=== PATIENT | female | born 1955 | race Caucasian/White ===

== ENCOUNTER 2020-10-03 19:56 | Inpatient (IN) | payer OTHER ==
[2020-10-03 21:03] LABS: BASO % 0.7 % (0-2.0); EOS % 3.5 % (0-4.5); LYMPH % 38.2 % (8-40); MCH 25.6 pg (25.7-33.7); MCHC 31.3 g/dl (32.0-36.0); MEAN CELL VOLUME 81.8 fl (80-96); MEAN PLT VOLUME 9.5 fl (7.5-11.1); MONO % 11.1 % (3.8-10.2); NEUT % 46.5 % (42.8-82.8); PLATELET COUNT 211 K/MM3 (134-434); RBC 4.28 M/mm3 (3.60-5.2); RDW 23.2 % (11.6-15.6); WHITE BLOOD COUNT 7.4 K/mm3 (4.0-10.0)
[2020-10-03 21:23] LABS: POTASSIUM 4.2 mmol/L (3.5-5.1)
[2020-10-03 21:27] LABS: BLOOD UREA NITROGEN 21.7 mg/dL (7-18); CALCIUM 9.1 mg/dL (8.5-10.1)
[2020-10-03 21:28] LABS: ALBUMIN 3.8 g/dl (3.4-5.0)
[2020-10-03 21:31] LABS: CREATININE 0.8 mg/dL (0.55-1.3)
[2020-10-03 21:32] LABS: BILIRUBIN,TOTAL 0.3 mg/dL (0.2-1); TOT PROT 7.9 g/dl (6.4-8.2)
[2020-10-03 21:46] LABS: INR 1.84 (0.83-1.09); PROTHROMBIN TIME (PATIENT) 22.2 SEC (9.7-13.0)
[2020-10-03 21:48] LABS: ACTIVATED PTT 37.1 SECONDS (25.2-36.5)
[2020-10-03 22:08] LABS: ANISOCYTOSIS 3+; MACROCYTOSIS 1+; OVALOCYTE 1+; PLATELET ESTIMATE NORMAL
[2020-10-04] MEDS ORDERED: ACETAMINOPHEN 1000 MG/100 ML VIAL (NON FORMULARY) IVPB ONE (00:01)
[2020-10-04] MEDS ORDERED: ACETAMINOPHEN INJECTION 100 ML IVPB ONE (00:03)
[2020-10-04] MEDS ORDERED: SODIUM CHLORIDE 250 ML IV STA (02:16)
[2020-10-04 05:11] VITALS: BMI 26.5
[2020-10-04] MEDS: ACETAMINOPHEN 325 MG TABLET (FP) PO PRN ×2 (05:25→22:35)
[2020-10-04] MEDS ORDERED: PT OWN MED DRAWER 7, Y5N ONE (09:08)
[2020-10-04] MEDS ORDERED: APIXABAN 5 MG TABLET PO SCH (10:00)
[2020-10-04 10:16] LABS: BASO % 1.1 % (0-2.0); EOS % 3.5 % (0-4.5); HEMATOCRIT 34.3 % (32.4-45.2); HEMOGLOBIN 10.9 GM/dL (10.7-15.3); MCHC 31.8 g/dl (32.0-36.0); MEAN CELL VOLUME 81.6 fl (80-96); MEAN PLT VOLUME 10.3 fl (7.5-11.1); NEUT % 51.4 % (42.8-82.8); PLATELET COUNT 202 K/MM3 (134-434); RDW 22.8 % (11.6-15.6); WHITE BLOOD COUNT 7.8 K/mm3 (4.0-10.0)
[2020-10-04] MEDS ORDERED: ALBUTEROL SO4 HFA INHALER IH PRN (10:35)
[2020-10-04 10:36] LABS: POTASSIUM 4.3 mmol/L (3.5-5.1)
[2020-10-04 10:38] LABS: CALCIUM 9.2 mg/dL (8.5-10.1)
[2020-10-04 10:39] LABS: ALBUMIN 3.7 g/dl (3.4-5.0); BLOOD UREA NITROGEN 19.3 mg/dL (7-18); MAGNESIUM 2.1 mg/dL (1.8-2.4)
[2020-10-04 10:43] LABS: BILIRUBIN,TOTAL 0.5 mg/dL (0.2-1)
[2020-10-04 10:44] LABS: CREATININE 0.8 mg/dL (0.55-1.3); PHOSPHOROUS 4.2 mg/dL (2.5-4.9)
[2020-10-04 10:45] LABS: TOT PROT 7.5 g/dl (6.4-8.2)
[2020-10-04] MEDS: oxyCODONE HCL 5 MG TABLET PO PRN (12:00)
[2020-10-04] MEDS: GABAPENTIN 100 MG CAPSULE PO SCH ×2 (14:26→21:42)
[2020-10-04 14:58] LABS: INR 1.57 (0.83-1.09); PROTHROMBIN TIME (PATIENT) 18.7 SEC (9.7-13.0)
[2020-10-04 15:00] LABS: ACTIVATED PTT 35.6 SECONDS (25.2-36.5)
[2020-10-04] MEDS: CARVEDILOL 3.125 MG TABLET (FP) PO SCH (21:42)
[2020-10-04] MEDS: ATORVASTATIN CA 80 MG TABLET (FP) PO SCH (21:42)
[2020-10-04] MEDS: ENOXAPARIN NA (PORCINE) 80 MG/0.8 ML DISP.SYRIN SQ SCH ×2 (21:42)
[2020-10-04] MEDS ORDERED: SENNOSIDES 8.6MG TABLET (FP) PO ONE (22:24)
[2020-10-04] MEDS ORDERED: POLYETHYLENE GLYCOL 3350 119 GM BTL PO ONE (22:24)
[2020-10-05] MEDS: GABAPENTIN 100 MG CAPSULE PO SCH ×3 (05:18→21:13)
[2020-10-05] MEDS: ACETAMINOPHEN 325 MG TABLET (FP) PO PRN ×2 (05:23→23:54)
[2020-10-05] MEDS: ZINC SULFATE 220 MG CAPSULE (FP) PO SCH (10:35)
[2020-10-05] MEDS: FOLIC ACID 1 MG TABLET (FP) PO SCH (10:35)
[2020-10-05] MEDS: MULTIVITAMINS (DAILY MVI) TABLET (FP) PO SCH (10:36)
[2020-10-05] MEDS: CARVEDILOL 3.125 MG TABLET (FP) PO SCH (10:36)
[2020-10-05] MEDS: THIAMINE HCL 100 MG TABLET (FP) PO SCH (10:36)
[2020-10-05] MEDS: FAMOTIDINE 20 MG TABLET PO SCH (10:36)
[2020-10-05] MEDS: FUROSEMIDE 20 MG TABLET (FP) PO SCH (10:37)
[2020-10-05] MEDS: SENNOSIDES 8.6MG TABLET (FP) PO SCH (10:37)
[2020-10-05] MEDS: LISINOPRIL 5 MG TABLET PO SCH (10:37)
[2020-10-05] MEDS: ENOXAPARIN NA (PORCINE) 80 MG/0.8 ML DISP.SYRIN SQ SCH ×3 (10:45→21:14)
[2020-10-05] MEDS: POLYETHYLENE GLYCOL 3350 119 GM BTL PO SCH (10:46)
[2020-10-05] MEDS: oxyCODONE HCL 5 MG TABLET PO PRN ×2 (13:36→21:14)
[2020-10-05] MEDS: ATORVASTATIN CA 80 MG TABLET (FP) PO SCH (21:13)
[2020-10-05] MEDS: CARVEDILOL 6.25 MG TABLET (FP) PO SCH (21:13)
[2020-10-06] MEDS ORDERED: MELATONIN 5 MG TABLETS PO ONE ×2 (00:56→21:11)
[2020-10-06] MEDS: GABAPENTIN 100 MG CAPSULE PO SCH ×3 (06:09→21:49)
[2020-10-06] MEDS ORDERED: LIDOCAINE HCL 1%, 10 MG/ML (20ML VIAL) ONE (08:18)
[2020-10-06] MEDS ORDERED: HEPARIN NA (PORCINE) 5,000 UNITS/ML 1ML VIAL ONE ×2 (08:18→08:57)
[2020-10-06] MEDS ORDERED: ONDANSETRON 4 MG/2 ML VIAL IVPUSH PRN ×2 (08:28→10:22)
[2020-10-06] MEDS ORDERED: LACTATED RINGERS SOLUTION 1,000 ML IV SCH (08:30)
[2020-10-06] MEDS ORDERED: LIDOCAINE HCL/PF 2% SDV 5ML VIAL ONE (08:57)
[2020-10-06] MEDS ORDERED: PROPOFOL 20 ML ONE ×2 (08:57→08:58)
[2020-10-06] MEDS ORDERED: MIDAZOLAM HCL 2 MG/2 ML SINGLE DOSE VIAL ONE (08:58)
[2020-10-06] MEDS ORDERED: ceFAZolin SODIUM 1 GM VIAL ONE (08:58)
[2020-10-06] MEDS ORDERED: LIDOCAINE HCL 1%, 10 MG/ML (20ML VIAL) INF ONE ×2 (09:06)
[2020-10-06] MEDS ORDERED: IOVERSOL 320 MG/ML ML IV ONE (09:40)
[2020-10-06] MEDS: THIAMINE HCL 100 MG TABLET (FP) PO SCH (10:00)
[2020-10-06] MEDS: FOLIC ACID 1 MG TABLET (FP) PO SCH (10:00)
[2020-10-06] MEDS: LISINOPRIL 5 MG TABLET PO SCH (10:00)
[2020-10-06] MEDS: ZINC SULFATE 220 MG CAPSULE (FP) PO SCH (10:00)
[2020-10-06] MEDS: POLYETHYLENE GLYCOL 3350 119 GM BTL PO SCH (10:00)
[2020-10-06] MEDS: MULTIVITAMINS (DAILY MVI) TABLET (FP) PO SCH (10:00)
[2020-10-06] MEDS: CARVEDILOL 6.25 MG TABLET (FP) PO SCH ×2 (10:00→21:48)
[2020-10-06] MEDS: FUROSEMIDE 20 MG TABLET (FP) PO SCH (10:00)
[2020-10-06] MEDS: SENNOSIDES 8.6MG TABLET (FP) PO SCH (10:00)
[2020-10-06] MEDS: FAMOTIDINE 20 MG TABLET PO SCH (10:00)
[2020-10-06] MEDS ORDERED: ALBUTEROL SO4 HFA INHALER IH PRN (10:22)
[2020-10-06] MEDS: LACTATED RINGERS SOLUTION 1,000 ML IV SCH (11:10)
[2020-10-06] MEDS: oxyCODONE HCL 5 MG TABLET PO PRN ×2 (12:58→20:30)
[2020-10-06] MEDS: APIXABAN 5 MG TABLET PO SCH ×2 (16:42→21:48)
[2020-10-06] MEDS: ATORVASTATIN CA 80 MG TABLET (FP) PO SCH (21:48)
[2020-10-07] MEDS: oxyCODONE HCL 5 MG TABLET PO PRN ×3 (02:41→20:32)
[2020-10-07] MEDS: GABAPENTIN 100 MG CAPSULE PO SCH ×3 (05:06→21:12)
[2020-10-07] MEDS: ACETAMINOPHEN 325 MG TABLET (FP) PO PRN (06:57)
[2020-10-07] MEDS: SENNOSIDES 8.6MG TABLET (FP) PO SCH (09:29)
[2020-10-07] MEDS: APIXABAN 5 MG TABLET PO SCH ×2 (09:29→21:11)
[2020-10-07] MEDS: CARVEDILOL 6.25 MG TABLET (FP) PO SCH ×2 (09:29→21:11)
[2020-10-07] MEDS: FOLIC ACID 1 MG TABLET (FP) PO SCH (09:29)
[2020-10-07] MEDS: FUROSEMIDE 20 MG TABLET (FP) PO SCH (09:30)
[2020-10-07] MEDS: THIAMINE HCL 100 MG TABLET (FP) PO SCH (09:30)
[2020-10-07] MEDS: MULTIVITAMINS (DAILY MVI) TABLET (FP) PO SCH (09:30)
[2020-10-07] MEDS: LISINOPRIL 5 MG TABLET PO SCH (09:30)
[2020-10-07] MEDS: POLYETHYLENE GLYCOL 3350 119 GM BTL PO SCH (09:31)
[2020-10-07] MEDS: FAMOTIDINE 20 MG TABLET PO SCH (09:31)
[2020-10-07] MEDS ORDERED: ZINC SULFATE 220 MG CAPSULE (FP) PO SCH (10:00)
[2020-10-07] MEDS: LACTATED RINGERS SOLUTION 1,000 ML IV SCH (13:40)
[2020-10-07] MEDS: ATORVASTATIN CA 80 MG TABLET (FP) PO SCH (21:12)
[2020-10-08] MEDS: ACETAMINOPHEN 325 MG TABLET (FP) PO PRN ×2 (01:30→19:55)
[2020-10-08] MEDS: oxyCODONE HCL 5 MG TABLET PO PRN ×2 (02:23→09:58)
[2020-10-08] MEDS: GABAPENTIN 100 MG CAPSULE PO SCH ×2 (05:13→14:00)
[2020-10-08] MEDS ORDERED: PT OWN MED DRAWER 7, Y5N ONE (05:19)
[2020-10-08] MEDS: SENNOSIDES 8.6MG TABLET (FP) PO SCH (09:56)
[2020-10-08] MEDS: APIXABAN 5 MG TABLET PO SCH (09:56)
[2020-10-08] MEDS: CARVEDILOL 6.25 MG TABLET (FP) PO SCH (09:57)
[2020-10-08] MEDS: FOLIC ACID 1 MG TABLET (FP) PO SCH (09:57)
[2020-10-08] MEDS: THIAMINE HCL 100 MG TABLET (FP) PO SCH (09:57)
[2020-10-08] MEDS: FUROSEMIDE 20 MG TABLET (FP) PO SCH (09:57)
[2020-10-08] MEDS: MULTIVITAMINS (DAILY MVI) TABLET (FP) PO SCH (09:57)
[2020-10-08] MEDS: LISINOPRIL 5 MG TABLET PO SCH (09:57)
[2020-10-08] MEDS: FAMOTIDINE 20 MG TABLET PO SCH (09:58)
[2020-10-08] MEDS: POLYETHYLENE GLYCOL 3350 119 GM BTL PO SCH (10:03)
[2020-10-08 18:57] VITALS: BP 131/60; PULSE 86; TEMP 97.6
== END 2020-10-08 20:00 | DRG 181 ==
LOC: JER 19:56 → JERBED 22:57 → J5S 10-04 05:20
PROVIDERS: ADMIT Hospitalist; ATTEND Internal Medicine
PROC: B40FYZZ Plain Radiography of Right Lower Extremity Arteries using Other Contrast (ICD-10-PCS; 2020-10-06)
PROC: B40DYZZ Plain Radiography of Aorta and Bilateral Lower Extremity Arteries using Other Contrast (ICD-10-PCS; 2020-10-06)
PROC: 047K3D1 Dilation of Right Femoral Artery with Intraluminal Device, using Drug-Coated Balloon, Percutaneous Approach (ICD-10-PCS; principal; 2020-10-06 09:00)
DX: I73.9 Peripheral vascular disease, unspecified (principal); I11.0 Hypertensive heart disease with heart failure; I50.22 Chronic systolic (congestive) heart failure; I36.1 Nonrheumatic tricuspid (valve) insufficiency; J44.9 Chronic obstructive pulmonary disease, unspecified; K21.9 Gastro-esophageal reflux disease without esophagitis; I25.10 Atherosclerotic heart disease of native coronary artery without angina pectoris; Z79.01 Long term (current) use of anticoagulants; D64.9 Anemia, unspecified; E78.5 Hyperlipidemia, unspecified; I44.7 Left bundle-branch block, unspecified; R94.31 Abnormal electrocardiogram [ECG] [EKG]; I34.0 Nonrheumatic mitral (valve) insufficiency; I35.0 Nonrheumatic aortic (valve) stenosis; I48.19 Other persistent atrial fibrillation
CPT/HCPCS: 36415; 71045-TC-FY; 75635-TC; 76000-TC-FY; 80053; 83605; 83735; 84100; 85025; 85610; 85730; 86850; 86900; 86901; 93005; 93010; 93926-TC; 94760; 99285-25; C9803; J0131; J1644; Q9967; U0003

== ENCOUNTER 2021-04-21 14:54 | Inpatient (IN) | payer OTHER ==
[2021-04-21] MEDS ORDERED: HEPARIN NA (PORCINE) 5,000 UNITS/ML 1ML VIAL IVPUSH PRN ×2 (15:28)
[2021-04-21] MEDS ORDERED: SODIUM CHLORIDE 0.9% 500 ML INFUS.BAG IV ONE (15:30)
[2021-04-21] MEDS ORDERED: ACETAMINOPHEN 1000 MG/100 ML VIAL (NON FORMULARY) IVPB ONE (15:36)
[2021-04-21 15:45] LABS: BASO % 1.2 % (0-2.0); EOS % 2.5 % (0-4.5); HEMATOCRIT 35.5 % (32.4-45.2); HEMOGLOBIN 11.3 GM/dL (10.7-15.3); LYMPH % 31.1 % (8-40); MCH 26.5 pg (25.7-33.7); MCHC 31.9 g/dl (32.0-36.0); MEAN CELL VOLUME 83.1 fl (80-96); MONO % 10.4 % (3.8-10.2); NEUT % 54.8 % (42.8-82.8); PLATELET COUNT 209 10^3/uL (134-434); RBC 4.28 M/mm3 (3.60-5.2); RDW 19.3 % (11.6-15.6); WHITE BLOOD COUNT 9.5 K/mm3 (4.0-10.0)
[2021-04-21 15:55] LABS: INR 1.67 (0.83-1.09); PROTHROMBIN TIME (PATIENT) 19.9 SEC (9.7-13.0)
[2021-04-21] MEDS ORDERED: HEPARIN INFUSION - 25,000 UNITS/500 ML INFUS.BAG IVPB ONE (15:55)
[2021-04-21] MEDS ORDERED: ACETAMINOPHEN INJECTION 100 ML IVPB ONE (15:55)
[2021-04-21 15:57] LABS: ACTIVATED PTT 35.3 SECONDS (25.2-36.5)
[2021-04-21 16:11] LABS: CHLORIDE 107 mmol/L (98-107); SODIUM 142 mmol/L (136-145)
[2021-04-21 16:13] LABS: CALCIUM 9.3 mg/dL (8.5-10.1)
[2021-04-21 16:14] LABS: ALBUMIN 3.7 g/dl (3.4-5.0); ANION GAP 7 MMOL/L (8-16); BLOOD UREA NITROGEN 27.9 mg/dL (7-18); CO2 28 mmol/L (21-32); GLUCOSE,RANDOM 70 mg/dL (74-106)
[2021-04-21 16:17] LABS: CREATININE 1.1 mg/dL (0.55-1.3); SGOT/AST 21 U/L (15-37); SGPT/ALT 28 U/L (13-61)
[2021-04-21 16:19] LABS: BILIRUBIN,TOTAL 0.4 mg/dL (0.2-1); TOT PROT 7.8 g/dl (6.4-8.2)
[2021-04-21 16:20] LABS: ALK PHOS 66 U/L (45-117)
[2021-04-21] MEDS: HEPARIN - 25,000 UNIT in SODIUM CHLORIDE 495 ML IV SCH (17:24)
[2021-04-21] MEDS: CARVEDILOL 6.25 MG TABLET (FP) PO SCH (21:15)
[2021-04-21] MEDS ORDERED: ATORVASTATIN CA 80 MG TABLET (FP) ONE (21:29)
[2021-04-21] MEDS ORDERED: GABAPENTIN 100 MG CAPSULE ONE (21:29)
[2021-04-21] MEDS: GABAPENTIN 100 MG CAPSULE PO SCH (21:31)
[2021-04-21] MEDS: ATORVASTATIN CA 80 MG TABLET (FP) PO SCH (21:31)
[2021-04-21] MEDS ORDERED: MORPHINE SULFATE 2 MG/ML VIAL ONE (21:48)
[2021-04-21] MEDS: MORPHINE SULFATE 2 MG/ML VIAL IVPUSH PRN (21:52)
[2021-04-21 23:44] LABS: INR 1.49 (0.83-1.09); PROTHROMBIN TIME (PATIENT) 17.8 SEC (9.7-13.0)
[2021-04-21 23:47] LABS: ACTIVATED PTT 59.3 SECONDS (25.2-36.5)
[2021-04-22] MEDS: GABAPENTIN 100 MG CAPSULE PO SCH ×3 (06:53→21:41)
[2021-04-22] MEDS: MORPHINE SULFATE 2 MG/ML VIAL IVPUSH PRN ×3 (06:53→21:37)
[2021-04-22 06:58] LABS: BASO % 0.9 % (0-2.0); EOS % 4.5 % (0-4.5); HEMATOCRIT 33.3 % (32.4-45.2); HEMOGLOBIN 10.8 GM/dL (10.7-15.3); LYMPH % 38.8 % (8-40); MCH 27.2 pg (25.7-33.7); MCHC 32.5 g/dl (32.0-36.0); MEAN CELL VOLUME 83.6 fl (80-96); MEAN PLT VOLUME 9.7 fl (7.5-11.1); MONO % 9.7 % (3.8-10.2); NEUT % 46.1 % (42.8-82.8); PLATELET COUNT 195 10^3/uL (134-434); RBC 3.98 M/mm3 (3.60-5.2); RDW 19.3 % (11.6-15.6); WHITE BLOOD COUNT 8.3 K/mm3 (4.0-10.0)
[2021-04-22] MEDS: CARVEDILOL 6.25 MG TABLET (FP) PO SCH ×2 (10:07→21:42)
[2021-04-22] MEDS: FUROSEMIDE 20 MG TABLET (FP) PO SCH (10:07)
[2021-04-22] MEDS: LISINOPRIL 5 MG TABLET PO SCH (10:07)
[2021-04-22 11:37] LABS: ALBUMIN 3.6 g/dl (3.4-5.0); BLOOD UREA NITROGEN 27.5 mg/dL (7-18); CALCIUM 9.1 mg/dL (8.5-10.1); MAGNESIUM 2.2 mg/dL (1.8-2.4)
[2021-04-22 11:40] LABS: PHOSPHOROUS 4.4 mg/dL (2.5-4.9)
[2021-04-22 11:43] LABS: BILIRUBIN,TOTAL 0.4 mg/dL (0.2-1); TOT PROT 7.2 g/dl (6.4-8.2)
[2021-04-22] MEDS: HEPARIN - 25,000 UNIT in SODIUM CHLORIDE 495 ML IV SCH (17:49)
[2021-04-22] MEDS ORDERED: ACETAMINOPHEN 1000 MG/100 ML VIAL (NON FORMULARY) IVPB ONE (19:45)
[2021-04-22] MEDS: ATORVASTATIN CA 80 MG TABLET (FP) PO SCH (21:41)
[2021-04-22] MEDS ORDERED: PT OWN MED DRAWER 7, Y5N ONE (22:33)
[2021-04-22] MEDS ORDERED: MORPHINE SULFATE 2 MG/ML VIAL IVPUSH PRN (23:44)
[2021-04-23] MEDS: HEPARIN - 25,000 UNIT in SODIUM CHLORIDE 495 ML IV SCH ×2 (00:11→16:21)
[2021-04-23] MEDS: GABAPENTIN 100 MG CAPSULE PO SCH ×3 (05:16→23:30)
[2021-04-23 06:51] LABS: HEMOGLOBIN 10.9 GM/dL (10.7-15.3); MCH 26.9 pg (25.7-33.7); MCHC 31.9 g/dl (32.0-36.0); MEAN CELL VOLUME 84.2 fl (80-96); MEAN PLT VOLUME 9.5 fl (7.5-11.1); PLATELET COUNT 196 10^3/uL (134-434); RBC 4.04 M/mm3 (3.60-5.2); RDW 19.7 % (11.6-15.6); WHITE BLOOD COUNT 8.3 K/mm3 (4.0-10.0)
[2021-04-23] MEDS: LISINOPRIL 5 MG TABLET PO SCH (10:12)
[2021-04-23] MEDS: FUROSEMIDE 20 MG TABLET (FP) PO SCH (10:12)
[2021-04-23] MEDS: CARVEDILOL 6.25 MG TABLET (FP) PO SCH ×2 (10:13→23:30)
[2021-04-23] MEDS ORDERED: HEPARIN NA (PORCINE) 5,000 UNITS/ML 1ML VIAL ONE ×3 (14:09→19:42)
[2021-04-23] MEDS ORDERED: LIDOCAINE HCL 1%, 10 MG/ML (20ML VIAL) ONE (14:09)
[2021-04-23] MEDS ORDERED: ONDANSETRON 4 MG/2 ML VIAL IVPUSH PRN ×2 (18:48→20:49)
[2021-04-23] MEDS ORDERED: MIDAZOLAM HCL 2 MG/2 ML SINGLE DOSE VIAL ONE (19:15)
[2021-04-23] MEDS ORDERED: PROPOFOL 20 ML ONE ×3 (19:15→19:44)
[2021-04-23] MEDS ORDERED: ceFAZolin SODIUM 1 GM VIAL IVPB ONE (19:15)
[2021-04-23] MEDS ORDERED: HEPARIN NA (PORCINE) 5,000 UNITS/ML 1ML VIAL IVPUSH PRN ×3 (20:23→20:24)
[2021-04-23] MEDS ORDERED: HEPARIN INFUSION - 25,000 UNITS/500 ML INFUS.BAG IVPB ONE (20:28)
[2021-04-23] MEDS: HEPARIN SOD,PORK IN 0.45% NACL 25,000 UNITS/500 ML INFUS.BAG IVPB SCH (20:30)
[2021-04-23] MEDS: MORPHINE SULFATE 2 MG/ML VIAL IVPUSH PRN (22:35)
[2021-04-23] MEDS: ATORVASTATIN CA 80 MG TABLET (FP) PO SCH (23:30)
[2021-04-24] MEDS: MORPHINE SULFATE 2 MG/ML VIAL IVPUSH PRN ×3 (00:26→05:54)
[2021-04-24] MEDS: GABAPENTIN 100 MG CAPSULE PO SCH ×3 (05:44→21:14)
[2021-04-24 06:57] LABS: HEMOGLOBIN 10.6 GM/dL (10.7-15.3); MCHC 32.1 g/dl (32.0-36.0); MEAN CELL VOLUME 84.1 fl (80-96); MEAN PLT VOLUME 9.4 fl (7.5-11.1); PLATELET COUNT 171 10^3/uL (134-434); RBC 3.93 M/mm3 (3.60-5.2); RDW 19.3 % (11.6-15.6); WHITE BLOOD COUNT 9.5 K/mm3 (4.0-10.0)
[2021-04-24] MEDS: FUROSEMIDE 20 MG TABLET (FP) PO SCH (10:00)
[2021-04-24] MEDS: LISINOPRIL 5 MG TABLET PO SCH (10:00)
[2021-04-24] MEDS: CARVEDILOL 6.25 MG TABLET (FP) PO SCH ×2 (10:38→21:14)
[2021-04-24] MEDS ORDERED: PT OWN MED DRAWER 7, Y5N ONE (11:18)
[2021-04-24] MEDS ORDERED: APIXABAN 5 MG TABLET PO SCH (12:00)
[2021-04-24] MEDS ORDERED: SODIUM CHLORIDE 1,000 ML IV SCH (19:00)
[2021-04-24 20:30] LABS: ALBUMIN 3.4 g/dl (3.4-5.0); BLOOD UREA NITROGEN 22.1 mg/dL (7-18); CALCIUM 8.7 mg/dL (8.5-10.1); MAGNESIUM 2.1 mg/dL (1.8-2.4)
[2021-04-24 20:34] LABS: CREATININE 0.7 mg/dL (0.55-1.3); PHOSPHOROUS 3.3 mg/dL (2.5-4.9)
[2021-04-24 20:35] LABS: BILIRUBIN,TOTAL 0.4 mg/dL (0.2-1); TOT PROT 7.4 g/dl (6.4-8.2)
[2021-04-24] MEDS: ATORVASTATIN CA 80 MG TABLET (FP) PO SCH (21:14)
[2021-04-24] MEDS: APIXABAN 5 MG TABLET PO SCH (21:14)
[2021-04-24] MEDS: HEPARIN SOD,PORK IN 0.45% NACL 25,000 UNITS/500 ML INFUS.BAG IVPB SCH (22:08)
[2021-04-25] MEDS: GABAPENTIN 100 MG CAPSULE PO SCH ×3 (06:35→21:54)
[2021-04-25] MEDS: FUROSEMIDE 20 MG TABLET (FP) PO SCH (10:16)
[2021-04-25] MEDS: CARVEDILOL 6.25 MG TABLET (FP) PO SCH ×2 (10:16→21:54)
[2021-04-25] MEDS: APIXABAN 5 MG TABLET PO SCH ×2 (10:16→21:55)
[2021-04-25] MEDS: LISINOPRIL 5 MG TABLET PO SCH (10:16)
[2021-04-25] MEDS: ATORVASTATIN CA 80 MG TABLET (FP) PO SCH (21:54)
[2021-04-26] MEDS: GABAPENTIN 100 MG CAPSULE PO SCH ×3 (07:34→22:19)
[2021-04-26] MEDS: CARVEDILOL 6.25 MG TABLET (FP) PO SCH ×2 (10:40→22:19)
[2021-04-26] MEDS: APIXABAN 5 MG TABLET PO SCH ×2 (10:40→22:19)
[2021-04-26] MEDS: FUROSEMIDE 20 MG TABLET (FP) PO SCH (10:40)
[2021-04-26] MEDS: LISINOPRIL 5 MG TABLET PO SCH (10:40)
[2021-04-26] MEDS: ATORVASTATIN CA 80 MG TABLET (FP) PO SCH (22:19)
[2021-04-27] MEDS: GABAPENTIN 100 MG CAPSULE PO SCH ×3 (06:29→21:02)
[2021-04-27] MEDS: LISINOPRIL 5 MG TABLET PO SCH (10:04)
[2021-04-27] MEDS: CARVEDILOL 6.25 MG TABLET (FP) PO SCH ×2 (10:04→21:02)
[2021-04-27] MEDS: FUROSEMIDE 20 MG TABLET (FP) PO SCH (10:04)
[2021-04-27] MEDS: APIXABAN 5 MG TABLET PO SCH ×2 (10:05→21:02)
[2021-04-27] MEDS ORDERED: ONDANSETRON 4 MG/2 ML VIAL IVPUSH PRN (19:26)
[2021-04-27] MEDS ORDERED: MORPHINE SULFATE 2 MG/ML VIAL IVPUSH PRN (19:26)
[2021-04-27] MEDS: ATORVASTATIN CA 80 MG TABLET (FP) PO SCH (21:02)
[2021-04-28] MEDS: GABAPENTIN 100 MG CAPSULE PO SCH ×3 (06:04→21:42)
[2021-04-28 08:38] LABS: BASO % 0.7 % (0-2.0); EOS % 2.9 % (0-4.5); HEMATOCRIT 34.4 % (32.4-45.2); HEMOGLOBIN 11.1 GM/dL (10.7-15.3); LYMPH % 22.2 % (8-40); MCH 27.2 pg (25.7-33.7); MCHC 32.3 g/dl (32.0-36.0); MEAN CELL VOLUME 84.4 fl (80-96); MEAN PLT VOLUME 9.6 fl (7.5-11.1); MONO % 10.9 % (3.8-10.2); NEUT % 63.3 % (42.8-82.8); PLATELET COUNT 211 10^3/uL (134-434); RBC 4.08 M/mm3 (3.60-5.2); RDW 20.2 % (11.6-15.6); WHITE BLOOD COUNT 7.4 K/mm3 (4.0-10.0)
[2021-04-28 09:12] LABS: BLOOD UREA NITROGEN 24.8 mg/dL (7-18); CALCIUM 9.1 mg/dL (8.5-10.1); MAGNESIUM 2.2 mg/dL (1.8-2.4)
[2021-04-28 09:15] LABS: CREATININE 0.6 mg/dL (0.55-1.3)
[2021-04-28] MEDS: APIXABAN 5 MG TABLET PO SCH ×2 (10:24→21:21)
[2021-04-28] MEDS: LISINOPRIL 5 MG TABLET PO SCH (10:25)
[2021-04-28] MEDS: FUROSEMIDE 20 MG TABLET (FP) PO SCH (10:25)
[2021-04-28] MEDS: CARVEDILOL 6.25 MG TABLET (FP) PO SCH ×2 (10:25→21:21)
[2021-04-28] MEDS: PANTOPRAZOLE 40 MG TABLET PO SCH (17:53)
[2021-04-28] MEDS: ATORVASTATIN CA 80 MG TABLET (FP) PO SCH (21:20)
[2021-04-29] MEDS ORDERED: ACETAMINOPHEN 325 MG TABLET (FP) PO ONE (00:59)
[2021-04-29] MEDS: GABAPENTIN 100 MG CAPSULE PO SCH ×3 (06:00→21:15)
[2021-04-29] MEDS: APIXABAN 5 MG TABLET PO SCH (10:21)
[2021-04-29] MEDS: FUROSEMIDE 20 MG TABLET (FP) PO SCH (10:21)
[2021-04-29] MEDS: PANTOPRAZOLE 40 MG TABLET PO SCH (10:21)
[2021-04-29] MEDS: LISINOPRIL 5 MG TABLET PO SCH (10:21)
[2021-04-29] MEDS: CARVEDILOL 6.25 MG TABLET (FP) PO SCH ×2 (10:21→21:16)
[2021-04-29] MEDS ORDERED: SODIUM CHLORIDE 250 ML IV STA (16:09)
[2021-04-29] MEDS: ATORVASTATIN CA 80 MG TABLET (FP) PO SCH (21:16)
[2021-04-30] MEDS: GABAPENTIN 100 MG CAPSULE PO SCH ×3 (05:20→22:30)
[2021-04-30 09:07] LABS: BASO % 0.8 % (0-2.0); EOS % 2.4 % (0-4.5); HEMATOCRIT 33.3 % (32.4-45.2); HEMOGLOBIN 10.9 GM/dL (10.7-15.3); MCH 27.3 pg (25.7-33.7); MCHC 32.8 g/dl (32.0-36.0); MEAN CELL VOLUME 83.4 fl (80-96); MEAN PLT VOLUME 9.5 fl (7.5-11.1); MONO % 8.2 % (3.8-10.2); NEUT % 66.6 % (42.8-82.8); PLATELET COUNT 229 10^3/uL (134-434); RBC 3.99 M/mm3 (3.60-5.2); RDW 19.3 % (11.6-15.6); WHITE BLOOD COUNT 8.2 K/mm3 (4.0-10.0)
[2021-04-30 09:30] LABS: CALCIUM 8.9 mg/dL (8.5-10.1)
[2021-04-30 09:31] LABS: BLOOD UREA NITROGEN 21.3 mg/dL (7-18)
[2021-04-30 09:34] LABS: CREATININE 0.7 mg/dL (0.55-1.3)
[2021-04-30] MEDS: PANTOPRAZOLE 40 MG TABLET PO SCH (09:55)
[2021-04-30] MEDS: CARVEDILOL 6.25 MG TABLET (FP) PO SCH ×2 (09:55→22:30)
[2021-04-30] MEDS: LISINOPRIL 5 MG TABLET PO SCH (09:55)
[2021-04-30] MEDS: FUROSEMIDE 20 MG TABLET (FP) PO SCH (09:55)
[2021-04-30] MEDS ORDERED: MULTIVITAMINS THER W-MINERALS COMBO TABLET (FP) PO SCH (10:00)
[2021-04-30] MEDS ORDERED: HEPARIN NA (PORCINE) 5,000 UNITS/ML 1ML VIAL ONE ×2 (15:10→17:20)
[2021-04-30] MEDS ORDERED: LIDOCAINE HCL 1%, 10 MG/ML (20ML VIAL) ONE (15:10)
[2021-04-30] MEDS ORDERED: PROPOFOL 20 ML ONE ×5 (15:41→17:34)
[2021-04-30] MEDS ORDERED: ceFAZolin SODIUM 1 GM VIAL ONE (15:48)
[2021-04-30] MEDS ORDERED: ceFAZolin SODIUM 1 GM VIAL IVPB ONE (15:49)
[2021-04-30] MEDS ORDERED: LIDOCAINE HCL 1%, 10 MG/ML (20ML VIAL) INF ONE (17:06)
[2021-04-30] MEDS ORDERED: PROMETHAZINE HCL 25 MG/1 ML VIAL IVPUSH PRN ×2 (18:05→18:28)
[2021-04-30] MEDS ORDERED: ONDANSETRON 4 MG/2 ML VIAL IVPUSH PRN ×2 (18:05→18:28)
[2021-04-30] MEDS ORDERED: LACTATED RINGERS SOLUTION 1,000 ML IV SCH ×2 (18:15→18:28)
[2021-04-30] MEDS ORDERED: APIXABAN 5 MG TABLET PO SCH (18:20)
[2021-04-30] MEDS: ATORVASTATIN CA 80 MG TABLET (FP) PO SCH (22:30)
[2021-05-01] MEDS: ACETAMINOPHEN 325 MG TABLET (FP) PO PRN ×2 (05:50→13:42)
[2021-05-01] MEDS: GABAPENTIN 100 MG CAPSULE PO SCH ×3 (05:53→21:15)
[2021-05-01] MEDS: PANTOPRAZOLE 40 MG TABLET PO SCH (11:52)
[2021-05-01] MEDS: MULTIVITAMINS THER W-MINERALS COMBO TABLET (FP) PO SCH (11:52)
[2021-05-01] MEDS: FUROSEMIDE 20 MG TABLET (FP) PO SCH (11:52)
[2021-05-01] MEDS: CARVEDILOL 6.25 MG TABLET (FP) PO SCH ×2 (11:53→21:15)
[2021-05-01] MEDS: APIXABAN 5 MG TABLET PO SCH ×2 (11:53→21:15)
[2021-05-01] MEDS: LISINOPRIL 5 MG TABLET PO SCH (11:53)
[2021-05-01 15:16] VITALS: BMI 29.9
[2021-05-01] MEDS: ATORVASTATIN CA 80 MG TABLET (FP) PO SCH (21:15)
[2021-05-02] MEDS: GABAPENTIN 100 MG CAPSULE PO SCH ×3 (05:25→21:02)
[2021-05-02] MEDS: LISINOPRIL 5 MG TABLET PO SCH (10:02)
[2021-05-02] MEDS: ACETAMINOPHEN 325 MG TABLET (FP) PO PRN ×3 (10:02→21:03)
[2021-05-02] MEDS: CARVEDILOL 6.25 MG TABLET (FP) PO SCH ×2 (10:02→21:01)
[2021-05-02] MEDS: MULTIVITAMINS THER W-MINERALS COMBO TABLET (FP) PO SCH (10:02)
[2021-05-02] MEDS: APIXABAN 5 MG TABLET PO SCH ×2 (10:02→21:02)
[2021-05-02] MEDS: PANTOPRAZOLE 40 MG TABLET PO SCH (10:02)
[2021-05-02] MEDS: FUROSEMIDE 20 MG TABLET (FP) PO SCH (10:02)
[2021-05-02] MEDS: oxyCODONE HCL 5 MG TABLET PO PRN ×2 (13:35→21:02)
[2021-05-02] MEDS: ATORVASTATIN CA 80 MG TABLET (FP) PO SCH (21:01)
[2021-05-03] MEDS: GABAPENTIN 100 MG CAPSULE PO SCH ×3 (05:29→21:23)
[2021-05-03] MEDS: oxyCODONE HCL 5 MG TABLET PO PRN ×2 (10:50→21:24)
[2021-05-03] MEDS: MULTIVITAMINS THER W-MINERALS COMBO TABLET (FP) PO SCH (10:52)
[2021-05-03] MEDS: CARVEDILOL 6.25 MG TABLET (FP) PO SCH ×2 (10:52→21:23)
[2021-05-03] MEDS: APIXABAN 5 MG TABLET PO SCH ×2 (10:52→21:24)
[2021-05-03] MEDS: LISINOPRIL 5 MG TABLET PO SCH (10:52)
[2021-05-03] MEDS: PANTOPRAZOLE 40 MG TABLET PO SCH (10:52)
[2021-05-03] MEDS: FUROSEMIDE 20 MG TABLET (FP) PO SCH (10:52)
[2021-05-03] MEDS: ACETAMINOPHEN 325 MG TABLET (FP) PO PRN ×2 (10:53→21:24)
[2021-05-03] MEDS: ATORVASTATIN CA 80 MG TABLET (FP) PO SCH (21:23)
[2021-05-04] MEDS: GABAPENTIN 100 MG CAPSULE PO SCH ×3 (05:25→21:22)
[2021-05-04] MEDS: LISINOPRIL 5 MG TABLET PO SCH (10:12)
[2021-05-04] MEDS: FUROSEMIDE 20 MG TABLET (FP) PO SCH (10:12)
[2021-05-04] MEDS: PANTOPRAZOLE 40 MG TABLET PO SCH (10:12)
[2021-05-04] MEDS: MULTIVITAMINS THER W-MINERALS COMBO TABLET (FP) PO SCH (10:12)
[2021-05-04] MEDS: APIXABAN 5 MG TABLET PO SCH ×2 (10:12→21:22)
[2021-05-04] MEDS: CARVEDILOL 6.25 MG TABLET (FP) PO SCH ×2 (10:12→21:22)
[2021-05-04] MEDS: oxyCODONE HCL 5 MG TABLET PO PRN ×2 (10:13→21:28)
[2021-05-04] MEDS: ACETAMINOPHEN 325 MG TABLET (FP) PO PRN (10:13)
[2021-05-04] MEDS: ATORVASTATIN CA 80 MG TABLET (FP) PO SCH (21:22)
[2021-05-04] MEDS: MORPHINE SULFATE 2 MG/ML VIAL IVPUSH PRN (21:23)
[2021-05-05] MEDS: MORPHINE SULFATE 2 MG/ML VIAL IVPUSH PRN (05:31)
[2021-05-05] MEDS: GABAPENTIN 100 MG CAPSULE PO SCH ×3 (05:32→21:25)
[2021-05-05 08:56] LABS: BASO % 0.8 % (0-2.0); EOS % 2.2 % (0-4.5); HEMATOCRIT 30.3 % (32.4-45.2); HEMOGLOBIN 9.9 GM/dL (10.7-15.3); INR 1.76 (0.83-1.09); LYMPH % 22.4 % (8-40); MCH 27.1 pg (25.7-33.7); MCHC 32.5 g/dl (32.0-36.0); MEAN CELL VOLUME 83.3 fl (80-96); MEAN PLT VOLUME 9.4 fl (7.5-11.1); MONO % 10.7 % (3.8-10.2); NEUT % 63.9 % (42.8-82.8); PLATELET COUNT 268 10^3/uL (134-434); RBC 3.64 M/mm3 (3.60-5.2); RDW 19.8 % (11.6-15.6); WHITE BLOOD COUNT 9.8 K/mm3 (4.0-10.0)
[2021-05-05 08:58] LABS: ACTIVATED PTT 31.1 SECONDS (25.2-36.5)
[2021-05-05 09:12] LABS: BLOOD UREA NITROGEN 14.6 mg/dL (7-18)
[2021-05-05 09:15] LABS: CREATININE 0.6 mg/dL (0.55-1.3)
[2021-05-05 09:17] LABS: BILIRUBIN,TOTAL 0.5 mg/dL (0.2-1); TOT PROT 7.1 g/dl (6.4-8.2)
[2021-05-05 09:36] LABS: ALBUMIN 2.6 g/dl (3.4-5.0)
[2021-05-05] MEDS: PANTOPRAZOLE 40 MG TABLET PO SCH (11:19)
[2021-05-05] MEDS: FUROSEMIDE 20 MG TABLET (FP) PO SCH (11:19)
[2021-05-05] MEDS: MULTIVITAMINS THER W-MINERALS COMBO TABLET (FP) PO SCH (11:20)
[2021-05-05] MEDS: CARVEDILOL 6.25 MG TABLET (FP) PO SCH ×2 (11:21→21:25)
[2021-05-05] MEDS: LISINOPRIL 5 MG TABLET PO SCH (11:21)
[2021-05-05] MEDS ORDERED: PT OWN MED DRAWER 7, Y5N ONE (12:37)
[2021-05-05] MEDS: oxyCODONE HCL 5 MG TABLET PO PRN (12:50)
[2021-05-05] MEDS: ACETAMINOPHEN 325 MG TABLET (FP) PO PRN (12:52)
[2021-05-05] MEDS: APIXABAN 5 MG TABLET PO SCH ×2 (12:53→23:48)
[2021-05-05] MEDS: ATORVASTATIN CA 80 MG TABLET (FP) PO SCH (21:25)
[2021-05-06] MEDS: GABAPENTIN 100 MG CAPSULE PO SCH ×3 (05:58→22:03)
[2021-05-06] MEDS: PANTOPRAZOLE 40 MG TABLET PO SCH (10:00)
[2021-05-06] MEDS: FUROSEMIDE 20 MG TABLET (FP) PO SCH (10:00)
[2021-05-06] MEDS: MULTIVITAMINS THER W-MINERALS COMBO TABLET (FP) PO SCH (10:00)
[2021-05-06] MEDS: LISINOPRIL 5 MG TABLET PO SCH (10:00)
[2021-05-06] MEDS: CARVEDILOL 6.25 MG TABLET (FP) PO SCH ×2 (10:00→22:03)
[2021-05-06 11:11] LABS: BASO % 0.8 % (0-2.0); EOS % 0.8 % (0-4.5); HEMATOCRIT 31.8 % (32.4-45.2); HEMOGLOBIN 10.4 GM/dL (10.7-15.3); LYMPH % 16.3 % (8-40); MCH 26.7 pg (25.7-33.7); MCHC 32.6 g/dl (32.0-36.0); MEAN PLT VOLUME 9.3 fl (7.5-11.1); NEUT % 72.1 % (42.8-82.8); PLATELET COUNT 271 10^3/uL (134-434); RBC 3.88 M/mm3 (3.60-5.2); RDW 19.5 % (11.6-15.6)
[2021-05-06 11:34] LABS: CALCIUM 9.1 mg/dL (8.5-10.1)
[2021-05-06 11:35] LABS: ALBUMIN 2.7 g/dl (3.4-5.0); BLOOD UREA NITROGEN 14.2 mg/dL (7-18)
[2021-05-06 11:38] LABS: CREATININE 0.6 mg/dL (0.55-1.3)
[2021-05-06 11:39] LABS: BILIRUBIN,TOTAL 0.6 mg/dL (0.2-1); TOT PROT 7.3 g/dl (6.4-8.2)
[2021-05-06] MEDS ORDERED: LIDOCAINE HCL 1%, 10 MG/ML (20ML VIAL) ONE (13:19)
[2021-05-06] MEDS ORDERED: HEPARIN NA (PORCINE) 5,000 UNITS/ML 1ML VIAL ONE ×2 (13:19→13:25)
[2021-05-06] MEDS ORDERED: MIDAZOLAM HCL 2 MG/2 ML SINGLE DOSE VIAL ONE (13:22)
[2021-05-06] MEDS ORDERED: PROPOFOL 20 ML ONE ×4 (13:58→15:22)
[2021-05-06] MEDS ORDERED: ceFAZolin SODIUM 1 GM VIAL IVPB ONE (14:20)
[2021-05-06] MEDS ORDERED: LIDOCAINE HCL 1%, 10 MG/ML (20ML VIAL) SQ ONE (15:32)
[2021-05-06] MEDS ORDERED: ACETAMINOPHEN 325 MG TABLET (FP) PO PRN ×2 (16:33)
[2021-05-06] MEDS ORDERED: MORPHINE SULFATE 2 MG/ML VIAL IVPUSH PRN (16:33)
[2021-05-06] MEDS: APIXABAN 5 MG TABLET PO SCH ×2 (17:10→22:03)
[2021-05-06] MEDS: SODIUM CHLORIDE 1,000 ML IV SCH ×2 (17:56→18:32)
[2021-05-06] MEDS ORDERED: APIXABAN 5 MG TABLET PO SCH (22:00)
[2021-05-06] MEDS: ATORVASTATIN CA 80 MG TABLET (FP) PO SCH (22:03)
[2021-05-07] MEDS: GABAPENTIN 100 MG CAPSULE PO SCH ×3 (06:00→21:02)
[2021-05-07] MEDS: PANTOPRAZOLE 40 MG TABLET PO SCH (09:27)
[2021-05-07] MEDS: APIXABAN 5 MG TABLET PO SCH ×2 (09:27→21:02)
[2021-05-07] MEDS: CARVEDILOL 6.25 MG TABLET (FP) PO SCH ×2 (09:27→21:02)
[2021-05-07] MEDS: MULTIVITAMINS THER W-MINERALS COMBO TABLET (FP) PO SCH (09:27)
[2021-05-07] MEDS: SPIRONOLACTONE 25 MG TABLET PO SCH (09:27)
[2021-05-07] MEDS: LISINOPRIL 5 MG TABLET PO SCH (09:27)
[2021-05-07] MEDS: oxyCODONE HCL 5 MG TABLET PO PRN (09:28)
[2021-05-07] MEDS ORDERED: SPIRONOLACTONE 25 MG TABLET PO SCH (10:00)
[2021-05-07] MEDS: SODIUM CHLORIDE 1,000 ML IV SCH ×2 (13:47→17:08)
[2021-05-07] MEDS: ACETAMINOPHEN 325 MG TABLET (FP) PO PRN (17:20)
[2021-05-07] MEDS: ATORVASTATIN CA 80 MG TABLET (FP) PO SCH (21:02)
[2021-05-08] MEDS: GABAPENTIN 100 MG CAPSULE PO SCH ×3 (05:06→21:20)
[2021-05-08 08:33] LABS: HEMATOCRIT 25.9 % (32.4-45.2); HEMOGLOBIN 8.5 GM/dL (10.7-15.3); MCH 26.9 pg (25.7-33.7); MCHC 32.6 g/dl (32.0-36.0); MEAN CELL VOLUME 82.5 fl (80-96); MEAN PLT VOLUME 9.3 fl (7.5-11.1); PLATELET COUNT 261 10^3/uL (134-434); RBC 3.14 M/mm3 (3.60-5.2); RDW 19.6 % (11.6-15.6); WHITE BLOOD COUNT 12.4 K/mm3 (4.0-10.0)
[2021-05-08 08:55] LABS: CALCIUM 8.1 mg/dL (8.5-10.1)
[2021-05-08 08:56] LABS: BLOOD UREA NITROGEN 11.3 mg/dL (7-18)
[2021-05-08 08:59] LABS: CREATININE 0.5 mg/dL (0.55-1.3)
[2021-05-08] MEDS ORDERED: PT OWN MED DRAWER 7, Y5N ONE (10:07)
[2021-05-08] MEDS: SPIRONOLACTONE 25 MG TABLET PO SCH (10:11)
[2021-05-08] MEDS: MULTIVITAMINS THER W-MINERALS COMBO TABLET (FP) PO SCH (10:11)
[2021-05-08] MEDS: LISINOPRIL 5 MG TABLET PO SCH (10:11)
[2021-05-08] MEDS: PANTOPRAZOLE 40 MG TABLET PO SCH (10:11)
[2021-05-08] MEDS: APIXABAN 5 MG TABLET PO SCH ×2 (10:11→21:20)
[2021-05-08] MEDS: CARVEDILOL 6.25 MG TABLET (FP) PO SCH ×2 (10:11→21:20)
[2021-05-08] MEDS: ACETAMINOPHEN 325 MG TABLET (FP) PO PRN ×2 (10:11→20:40)
[2021-05-08] MEDS ORDERED: DEXTROSE 5%-WATER - 50 ML IVPB ONE ×2 (11:07→17:31)
[2021-05-08] MEDS ORDERED: ceFAZolin SODIUM 1 GM VIAL ONE ×2 (11:07→17:31)
[2021-05-08] MEDS: CEFAZOLIN 1 GM in DEXTROSE 5%-WATER - 50 ML IVPB SCH ×2 (11:12→18:06)
[2021-05-08] MEDS: SODIUM CHLORIDE 1,000 ML IV SCH (18:07)
[2021-05-08] MEDS: ATORVASTATIN CA 80 MG TABLET (FP) PO SCH (21:20)
[2021-05-09] MEDS ORDERED: ceFAZolin SODIUM 1 GM VIAL ONE ×2 (01:01→08:57)
[2021-05-09] MEDS ORDERED: DEXTROSE 5%-WATER - 50 ML IVPB ONE ×2 (01:01→08:58)
[2021-05-09] MEDS: CEFAZOLIN 1 GM in DEXTROSE 5%-WATER - 50 ML IVPB SCH ×2 (01:27→09:54)
[2021-05-09] MEDS: GABAPENTIN 100 MG CAPSULE PO SCH ×2 (05:48→13:42)
[2021-05-09] MEDS ORDERED: PT OWN MED DRAWER 7, Y5N ONE (08:57)
[2021-05-09] MEDS: MULTIVITAMINS THER W-MINERALS COMBO TABLET (FP) PO SCH (09:55)
[2021-05-09] MEDS: LISINOPRIL 5 MG TABLET PO SCH (09:55)
[2021-05-09] MEDS: CARVEDILOL 6.25 MG TABLET (FP) PO SCH (09:55)
[2021-05-09] MEDS: PANTOPRAZOLE 40 MG TABLET PO SCH (09:55)
[2021-05-09] MEDS: SPIRONOLACTONE 25 MG TABLET PO SCH (09:55)
[2021-05-09] MEDS: oxyCODONE HCL 5 MG TABLET PO PRN (10:01)
[2021-05-09] MEDS: APIXABAN 5 MG TABLET PO SCH (10:03)
[2021-05-09 15:16] VITALS: BP 129/54; PULSE 94; TEMP 99.9
== END 2021-05-09 15:47 | DRG 181 ==
LOC: JER 14:54 → JERBED 16:54 → J2W 23:40 → J5S 04-27 19:01
PROVIDERS: ADMIT Internal Medicine
PROC: B41DZZZ Fluoroscopy of Aorta and Bilateral Lower Extremity Arteries (ICD-10-PCS; 2021-04-23)
PROC: 3E03317 Introduction of Other Thrombolytic into Peripheral Vein, Percutaneous Approach (ICD-10-PCS; 2021-04-23)
PROC: X27J385 Dilation of Left Femoral Artery with Sustained Release Drug-eluting Intraluminal Device, Percutaneous Approach, New Technology Group 5 (ICD-10-PCS; principal; 2021-04-23 17:00)
PROC: 047H341 Dilation of Right External Iliac Artery with Drug-eluting Intraluminal Device, using Drug-Coated Balloon, Percutaneous Approach (ICD-10-PCS; 2021-04-30)
PROC: B41DZZZ Fluoroscopy of Aorta and Bilateral Lower Extremity Arteries (ICD-10-PCS; 2021-04-30)
PROC: 3E03317 Introduction of Other Thrombolytic into Peripheral Vein, Percutaneous Approach (ICD-10-PCS; 2021-04-30)
PROC: 047C341 Dilation of Right Common Iliac Artery with Drug-eluting Intraluminal Device, using Drug-Coated Balloon, Percutaneous Approach (ICD-10-PCS; 2021-05-06)
PROC: 3E03317 Introduction of Other Thrombolytic into Peripheral Vein, Percutaneous Approach (ICD-10-PCS; 2021-05-06)
PROC: B41DZZZ Fluoroscopy of Aorta and Bilateral Lower Extremity Arteries (ICD-10-PCS; 2021-05-06)
DX: I70.202 Unspecified atherosclerosis of native arteries of extremities, left leg (principal); I50.22 Chronic systolic (congestive) heart failure; I48.19 Other persistent atrial fibrillation; M79.672 Pain in left foot; I77.9 Disorder of arteries and arterioles, unspecified; R20.2 Paresthesia of skin; Z95.5 Presence of coronary angioplasty implant and graft; Z79.01 Long term (current) use of anticoagulants; I48.91 Unspecified atrial fibrillation; E11.51 Type 2 diabetes mellitus with diabetic peripheral angiopathy without gangrene; E78.5 Hyperlipidemia, unspecified; I25.10 Atherosclerotic heart disease of native coronary artery without angina pectoris; Z95.1 Presence of aortocoronary bypass graft; I50.9 Heart failure, unspecified; I35.2 Nonrheumatic aortic (valve) stenosis with insufficiency; R01.1 Cardiac murmur, unspecified; J44.9 Chronic obstructive pulmonary disease, unspecified; D64.9 Anemia, unspecified; I11.0 Hypertensive heart disease with heart failure; I70.212 Atherosclerosis of native arteries of extremities with intermittent claudication, left leg; E11.9 Type 2 diabetes mellitus without complications; I70.90 Unspecified atherosclerosis
CPT/HCPCS: 36415; 71045-TC-FY; 75635-TC; 76000-TC-FY; 80048; 80053; 82272; 82550; 82553; 82962; 83735; 84100; 84484; 85025; 85027; 85610; 85730; 86850; 86900; 86901; 87086; 93005; 93010; 93306-TC; 94010; 94760; 97116-GP; 97161-GP; 99291; C9803; J0131; J1644; Q9967; U0003; U0005

== ENCOUNTER 2021-08-05 16:45 | Inpatient (IN) | payer OTHER ==
[2021-08-05] MEDS ORDERED: HEPARIN NA (PORCINE) 5,000 UNITS/ML 1ML VIAL IVPUSH PRN ×2 (18:29)
[2021-08-05] MEDS ORDERED: HEPARIN NA (PORCINE) 5,000 UNITS/ML 1ML VIAL IVPUSH ONE (18:30)
[2021-08-05] MEDS ORDERED: HEPARIN - 25,000 UNIT in SODIUM CHLORIDE 495 ML IV SCH (18:30)
[2021-08-05 19:02] LABS: BASO % 0.5 % (0-2.0); EOS % 4.4 % (0-4.5); HEMATOCRIT 33.5 % (32.4-45.2); HEMOGLOBIN 10.5 GM/dL (10.7-15.3); LYMPH % 33.4 % (8-40); MCH 26.7 pg (25.7-33.7); MCHC 31.5 g/dl (32.0-36.0); MEAN CELL VOLUME 84.8 fl (80-96); MONO % 8.2 % (3.8-10.2); NEUT % 53.5 % (42.8-82.8); PLATELET COUNT 227 10^3/uL (134-434); RBC 3.95 M/mm3 (3.60-5.2); WHITE BLOOD COUNT 7.3 K/mm3 (4.0-10.0)
[2021-08-05 19:13] LABS: INR 1.73 (0.83-1.09); PROTHROMBIN TIME (PATIENT) 20.3 SEC (9.7-13.0)
[2021-08-05 19:24] LABS: CALCIUM 9.4 mg/dL (8.5-10.1)
[2021-08-05 19:25] LABS: ALBUMIN 3.4 g/dl (3.4-5.0); BLOOD UREA NITROGEN 30.5 mg/dL (7-18)
[2021-08-05 19:28] LABS: CREATININE 0.9 mg/dL (0.55-1.3)
[2021-08-05 19:29] LABS: BILIRUBIN,TOTAL 0.3 mg/dL (0.2-1)
[2021-08-05 19:30] LABS: TOT PROT 7.9 g/dl (6.4-8.2)
[2021-08-05] MEDS ORDERED: ACETAMINOPHEN 1000 MG/100 ML BAG IVPB ONE (19:52)
[2021-08-05 20:34] LABS: ANISOCYTOSIS 2+; MACROCYTOSIS 0; OVALOCYTE 1+; PLATELET ESTIMATE NORMAL
[2021-08-05] MEDS ORDERED: ACETAMINOPHEN INJECTION 100 ML IVPB ONE (22:03)
[2021-08-05] MEDS ORDERED: ACETAMINOPHEN 325 MG TABLET (FP) PO PRN (22:42)
[2021-08-05] MEDS ORDERED: SODIUM CHLORIDE 1,000 ML IV SCH (22:45)
[2021-08-06 03:10] LABS: INR 1.6 (0.83-1.09); PROTHROMBIN TIME (PATIENT) 18.8 SEC (9.7-13.0)
[2021-08-06 06:13] VITALS: BMI 28.9
[2021-08-06 09:15] LABS: INR 1.62 (0.83-1.09); PROTHROMBIN TIME (PATIENT) 18.2 SEC (9.7-13.0)
[2021-08-06 09:16] LABS: BASO % 0.9 % (0-2.0); EOS % 5.8 % (0-4.5); HEMATOCRIT 32.8 % (32.4-45.2); HEMOGLOBIN 10.5 GM/dL (10.7-15.3); MCH 26.8 pg (25.7-33.7); MCHC 32.1 g/dl (32.0-36.0); MEAN CELL VOLUME 83.4 fl (80-96); MEAN PLT VOLUME 9.2 fl (7.5-11.1); MONO % 9.6 % (3.8-10.2); NEUT % 41.7 % (42.8-82.8); PLATELET COUNT 203 10^3/uL (134-434); RBC 3.93 M/mm3 (3.60-5.2); RDW 20.6 % (11.6-15.6); WHITE BLOOD COUNT 6.3 K/mm3 (4.0-10.0)
[2021-08-06 09:18] LABS: ACTIVATED PTT 57.7 SECONDS (25.2-36.5)
[2021-08-06] MEDS ORDERED: CARVEDILOL 3.125 MG TABLET (FP) PO SCH ×2 (10:00→22:00)
[2021-08-06] MEDS ORDERED: HEPARIN NA (PORCINE) 5,000 UNITS/ML 1ML VIAL ONE ×2 (10:10→11:16)
[2021-08-06] MEDS ORDERED: LIDOCAINE HCL 1%, 10 MG/ML (20ML VIAL) ONE (10:10)
[2021-08-06] MEDS ORDERED: LIDOCAINE HCL 1%, 10 MG/ML (20ML VIAL) NR ONE ×2 (10:48→11:07)
[2021-08-06] MEDS ORDERED: HEPARIN NA (PORCINE) 5,000 UNITS/ML 1ML VIAL SQ ONE ×2 (10:48→11:10)
[2021-08-06] MEDS ORDERED: IOVERSOL 320 MG/ML ML IV ONE ×2 (10:49→11:10)
[2021-08-06] MEDS ORDERED: MIDAZOLAM HCL 2 MG/2 ML SINGLE DOSE VIAL ONE (10:49)
[2021-08-06 10:56] LABS: BILIRUBIN,TOTAL 0.4 mg/dL (0.2-1); BLOOD UREA NITROGEN 27.5 mg/dL (7-18); CALCIUM 9.1 mg/dL (8.5-10.1); CREATININE 0.8 mg/dL (0.55-1.3); MAGNESIUM 2.2 mg/dL (1.8-2.4); PHOSPHOROUS 3.8 mg/dL (2.5-4.9); TOT PROT 7.4 g/dl (6.4-8.2)
[2021-08-06] MEDS ORDERED: ceFAZolin SODIUM 1 GM VIAL IVPB ONE (11:00)
[2021-08-06] MEDS ORDERED: KETAMINE HCL 200 MG/20 ML VIAL ONE (11:49)
[2021-08-06] MEDS ORDERED: APIXABAN 5 MG TABLET ONE (12:59)
[2021-08-06] MEDS: APIXABAN 5 MG TABLET PO SCH ×2 (13:00→23:41)
[2021-08-06] MEDS ORDERED: oxyCODONE HCL 5 MG TABLET PO PRN (13:26)
[2021-08-06] MEDS ORDERED: ONDANSETRON 4 MG/2 ML VIAL IVPUSH PRN (13:26)
[2021-08-06] MEDS ORDERED: morphine SULFATE 4 MG/ML VIAL IVPUSH ONE (14:39)
[2021-08-06] MEDS ORDERED: IPRATROPIUM BR 0.02% 0.5 MG/2.5 ML VIAL.NEB. NEB ONE (20:36)
[2021-08-06 20:54] LABS: ARTERIAL BLD GAS O2 SATURATION 92.5 % (95-98); ARTERIAL BLOOD GAS BASE EXCESS -9.3 mmol/L (-2-2); ARTERIAL BLOOD GAS pH 7.309 (7.350-7.450)
[2021-08-06 20:56] LABS: ALLENS TEST POSITIVE
[2021-08-06] MEDS ORDERED: METOPROLOL TARTRATE 5 MG/5 ML VIAL IVPB ONE (20:58)
[2021-08-06] MEDS ORDERED: METOPROLOL TARTRATE 5 MG/5 ML VIAL ONE (21:01)
[2021-08-06] MEDS ORDERED: METOPROLOL TARTRATE 5 MG/5 ML VIAL IVPUSH ONE ×2 (21:11→21:31)
[2021-08-06 21:33] LABS: BASO % 0.6 % (0-2.0); EOS % 0.1 % (0-4.5); HEMATOCRIT 37.7 % (32.4-45.2); HEMOGLOBIN 11.7 GM/dL (10.7-15.3); LYMPH % 12.6 % (8-40); MCH 26.6 pg (25.7-33.7); MCHC 30.9 g/dl (32.0-36.0); MEAN PLT VOLUME 9.2 fl (7.5-11.1); MONO % 5.8 % (3.8-10.2); NEUT % 80.9 % (42.8-82.8); PLATELET COUNT 259 10^3/uL (134-434); RBC 4.39 M/mm3 (3.60-5.2); RDW 20.6 % (11.6-15.6); WHITE BLOOD COUNT 9.3 K/mm3 (4.0-10.0)
[2021-08-06 21:58] LABS: ALBUMIN 3.4 g/dl (3.4-5.0); BLOOD UREA NITROGEN 33.7 mg/dL (7-18); CALCIUM 8.9 mg/dL (8.5-10.1)
[2021-08-06] MEDS ORDERED: ATORVASTATIN CA 80 MG TABLET (FP) PO SCH ×2 (22:00)
[2021-08-06 22:02] LABS: CREATININE 1.2 mg/dL (0.55-1.3)
[2021-08-06 22:03] LABS: BILIRUBIN,TOTAL 0.9 mg/dL (0.2-1); TOT PROT 8.1 g/dl (6.4-8.2)
[2021-08-06 22:07] LABS: N-TERMINAL BNP 5454.4 pg/ml (5-125)
[2021-08-06] MEDS: oxyCODONE HCL 5 MG TABLET PO PRN (23:41)
[2021-08-07] MEDS ORDERED: ACETAMINOPHEN 1000 MG/100 ML BAG IVPB ONE (05:33)
[2021-08-07] MEDS: CARVEDILOL 3.125 MG TABLET (FP) PO SCH ×2 (09:00→21:17)
[2021-08-07] MEDS: APIXABAN 5 MG TABLET PO SCH ×2 (09:00→21:17)
[2021-08-07] MEDS: oxyCODONE HCL 5 MG TABLET PO PRN ×3 (11:15→20:48)
[2021-08-07] MEDS: ATORVASTATIN CA 80 MG TABLET (FP) PO SCH (21:17)
[2021-08-08] MEDS: oxyCODONE HCL 5 MG TABLET PO PRN ×3 (06:17→19:45)
[2021-08-08 07:21] LABS: BASO % 0.3 % (0-2.0); HEMATOCRIT 33.5 % (32.4-45.2); HEMOGLOBIN 10.8 GM/dL (10.7-15.3); LYMPH % 13.1 % (8-40); MCH 26.9 pg (25.7-33.7); MCHC 32.2 g/dl (32.0-36.0); MEAN CELL VOLUME 83.6 fl (80-96); MEAN PLT VOLUME 9.5 fl (7.5-11.1); MONO % 9.6 % (3.8-10.2); PLATELET COUNT 210 10^3/uL (134-434); RBC 4.01 M/mm3 (3.60-5.2); RDW 20.8 % (11.6-15.6); WHITE BLOOD COUNT 12.4 K/mm3 (4.0-10.0)
[2021-08-08 07:24] LABS: ALBUMIN 3.1 g/dl (3.4-5.0); BLOOD UREA NITROGEN 53.2 mg/dL (7-18); CALCIUM 8.8 mg/dL (8.5-10.1)
[2021-08-08 07:25] LABS: MAGNESIUM 2.7 mg/dL (1.8-2.4)
[2021-08-08 07:26] LABS: PHOSPHOROUS 3.4 mg/dL (2.5-4.9)
[2021-08-08 07:27] LABS: BILIRUBIN,TOTAL 0.6 mg/dL (0.2-1); TOT PROT 7.2 g/dl (6.4-8.2)
[2021-08-08] MEDS: APIXABAN 5 MG TABLET PO SCH ×2 (10:13→21:06)
[2021-08-08] MEDS: CARVEDILOL 3.125 MG TABLET (FP) PO SCH ×2 (10:13→21:06)
[2021-08-08] MEDS: ATORVASTATIN CA 80 MG TABLET (FP) PO SCH (21:06)
[2021-08-09] MEDS ORDERED: HEPARIN NA (PORCINE) 5,000 UNITS/ML 1ML VIAL IVPUSH PRN ×5 (01:40→17:00)
[2021-08-09] MEDS ORDERED: HEPARIN INFUSION - 25,000 UNITS/500 ML INFUS.BAG IVPB SCH (01:45)
[2021-08-09] MEDS ORDERED: VANCOMYCIN 1 GM in D5W (PRE-DOCKED) 1,000 MG/250 ML IVPB ONE (01:51)
[2021-08-09] MEDS ORDERED: PIPERACILLIN/TAZOBACTAM 4.5 GM VIAL IVPB ONE ×3 (02:17→18:10)
[2021-08-09] MEDS ORDERED: DEXTROSE 5%-WATER 100 ML IVPB ONE ×3 (02:17→18:10)
[2021-08-09] MEDS: PIPERACILLIN/TAZOB 4.5 GM 4.5 GM in DEXTROSE 5%-WATER 100 ML IVPB SCH ×3 (03:39→19:31)
[2021-08-09 08:19] LABS: BASO % 0.5 % (0-2.0); EOS % 0.2 % (0-4.5); HEMATOCRIT 34.9 % (32.4-45.2); HEMOGLOBIN 10.9 GM/dL (10.7-15.3); MCH 26.6 pg (25.7-33.7); MCHC 31.1 g/dl (32.0-36.0); MEAN CELL VOLUME 85.5 fl (80-96); MEAN PLT VOLUME 9.3 fl (7.5-11.1); MONO % 11.5 % (3.8-10.2); NEUT % 67.8 % (42.8-82.8); PLATELET COUNT 199 10^3/uL (134-434); RBC 4.09 M/mm3 (3.60-5.2); RDW 21.2 % (11.6-15.6); WHITE BLOOD COUNT 14.1 K/mm3 (4.0-10.0)
[2021-08-09 08:43] LABS: BLOOD UREA NITROGEN 40.8 mg/dL (7-18); CALCIUM 8.3 mg/dL (8.5-10.1)
[2021-08-09 08:48] LABS: CREATININE 0.9 mg/dL (0.55-1.3)
[2021-08-09] MEDS: CARVEDILOL 3.125 MG TABLET (FP) PO SCH ×2 (11:08→22:39)
[2021-08-09 11:13] LABS: ANISOCYTOSIS 2+; MACROCYTOSIS 0; PLATELET ESTIMATE NORMAL
[2021-08-09] MEDS ORDERED: LIDOCAINE HCL 1%, 10 MG/ML (20ML VIAL) ONE (13:17)
[2021-08-09] MEDS ORDERED: HEPARIN NA (PORCINE) 5,000 UNITS/ML 1ML VIAL ONE ×2 (13:18→15:24)
[2021-08-09] MEDS ORDERED: MIDAZOLAM HCL 2 MG/2 ML SINGLE DOSE VIAL ONE (13:40)
[2021-08-09] MEDS ORDERED: ALBUTEROL SO4 2.5/IPRATROPIUM 0.5 INH SOL 3 ML VIAL.NEB. NEB PRN ×2 (14:04→19:20)
[2021-08-09] MEDS ORDERED: ONDANSETRON 4 MG/2 ML VIAL IVPUSH PRN ×3 (14:09→19:20)
[2021-08-09] MEDS ORDERED: LACTATED RINGERS SOLUTION 1,000 ML IV SCH (14:15)
[2021-08-09] MEDS ORDERED: PROPOFOL 20 ML ONE (14:29)
[2021-08-09] MEDS ORDERED: DEXAMETHASONE SOD PHOSPHATE 4 MG/1 ML VIAL ONE (14:35)
[2021-08-09] MEDS ORDERED: HEPARIN NA (PORCINE) 5,000 UNITS/ML 1ML VIAL SQ ONE (16:07)
[2021-08-09] MEDS ORDERED: SODIUM CHLORIDE 1,000 ML IV SCH (17:15)
[2021-08-09] MEDS: HEPARIN INFUSION - 25,000 UNITS/500 ML INFUS.BAG IVPB SCH (17:20)
[2021-08-09] MEDS ORDERED: LORazepam 2 MG/ML SDV VIAL ONE (18:04)
[2021-08-09] MEDS ORDERED: LORazepam 2 MG/ML SDV VIAL IVPUSH ONE (18:08)
[2021-08-09] MEDS: ATORVASTATIN CA 80 MG TABLET (FP) PO SCH (22:39)
[2021-08-10] MEDS: oxyCODONE HCL 5 MG TABLET PO PRN ×5 (00:20→21:04)
[2021-08-10] MEDS: LACTATED RINGERS SOLUTION 1,000 ML IV SCH ×2 (00:22→14:57)
[2021-08-10] MEDS ORDERED: PIPERACILLIN/TAZOB 4.5 GM 4.5 GM in DEXTROSE 5%-WATER 100 ML IVPB SCH (02:00)
[2021-08-10] MEDS: HEPARIN INFUSION - 25,000 UNITS/500 ML INFUS.BAG IVPB SCH ×3 (07:41→17:11)
[2021-08-10] MEDS: CARVEDILOL 3.125 MG TABLET (FP) PO SCH (10:27)
[2021-08-10 11:05] LABS: BASO % 0.4 % (0-2.0); HEMATOCRIT 30.9 % (32.4-45.2); HEMOGLOBIN 9.6 GM/dL (10.7-15.3); LYMPH % 14.3 % (8-40); MCH 26.6 pg (25.7-33.7); MCHC 30.9 g/dl (32.0-36.0); MEAN CELL VOLUME 85.9 fl (80-96); MEAN PLT VOLUME 9.9 fl (7.5-11.1); MONO % 13.7 % (3.8-10.2); NEUT % 71.6 % (42.8-82.8); PLATELET COUNT 206 10^3/uL (134-434); RDW 21.2 % (11.6-15.6); WHITE BLOOD COUNT 14.6 K/mm3 (4.0-10.0)
[2021-08-10] MEDS ORDERED: CARVEDILOL 3.125 MG TABLET (FP) PO ONE (11:30)
[2021-08-10 12:04] LABS: BLOOD UREA NITROGEN 39.9 mg/dL (7-18); CALCIUM 8.1 mg/dL (8.5-10.1); CREATININE 1.2 mg/dL (0.55-1.3)
[2021-08-10] MEDS: CARVEDILOL 6.25 MG TABLET (FP) PO SCH (21:07)
[2021-08-10] MEDS: ATORVASTATIN CA 80 MG TABLET (FP) PO SCH (21:07)
[2021-08-10] MEDS ORDERED: ACETAMINOPHEN 1000 MG/100 ML BAG IVPB ONE (23:48)
[2021-08-11 09:14] LABS: HEMATOCRIT 28.1 % (32.4-45.2); HEMOGLOBIN 8.8 GM/dL (10.7-15.3); MCH 26.4 pg (25.7-33.7); MCHC 31.3 g/dl (32.0-36.0); MEAN CELL VOLUME 84.2 fl (80-96); MEAN PLT VOLUME 9.5 fl (7.5-11.1); PLATELET COUNT 169 10^3/uL (134-434); RBC 3.34 M/mm3 (3.60-5.2); RDW 20.8 % (11.6-15.6)
[2021-08-11] MEDS: CARVEDILOL 6.25 MG TABLET (FP) PO SCH ×2 (11:12→21:24)
[2021-08-11 11:55] LABS: ALBUMIN 2.6 g/dl (3.4-5.0); BILIRUBIN,TOTAL 0.6 mg/dL (0.2-1); CALCIUM 8.1 mg/dL (8.5-10.1); CREATININE 0.9 mg/dL (0.55-1.3); MAGNESIUM 2.8 mg/dL (1.8-2.4); TOT PROT 6.6 g/dl (6.4-8.2)
[2021-08-11] MEDS ORDERED: ACETAMINOPHEN 1000 MG/100 ML BAG IVPB ONE (14:09)
[2021-08-11] MEDS ORDERED: cefTRIAXone SODIUM 1 GM VIAL ONE (14:38)
[2021-08-11] MEDS ORDERED: DEXTROSE 5%-WATER - 50 ML IVPB ONE (14:39)
[2021-08-11] MEDS: CEFTRIAXONE 1 GM in DEXTROSE 5%-WATER - 50 ML IVPB SCH (15:32)
[2021-08-11] MEDS: oxyCODONE HCL 5 MG TABLET PO PRN (15:33)
[2021-08-11] MEDS: HEPARIN INFUSION - 25,000 UNITS/500 ML INFUS.BAG IVPB SCH (17:10)
[2021-08-11] MEDS: LACTATED RINGERS SOLUTION 1,000 ML IV SCH (20:00)
[2021-08-11] MEDS: ATORVASTATIN CA 80 MG TABLET (FP) PO SCH (21:24)
[2021-08-12] MEDS: LACTATED RINGERS SOLUTION 1,000 ML IV SCH ×3 (00:27→19:32)
[2021-08-12 07:05] LABS: HEMATOCRIT 26.5 % (32.4-45.2); HEMOGLOBIN 8.4 GM/dL (10.7-15.3); MCH 26.9 pg (25.7-33.7); MCHC 31.8 g/dl (32.0-36.0); MEAN CELL VOLUME 84.6 fl (80-96); MEAN PLT VOLUME 9.5 fl (7.5-11.1); PLATELET COUNT 170 10^3/uL (134-434); RBC 3.14 M/mm3 (3.60-5.2); RDW 20.8 % (11.6-15.6); WHITE BLOOD COUNT 13.1 K/mm3 (4.0-10.0)
[2021-08-12 07:33] LABS: CALCIUM 7.9 mg/dL (8.5-10.1)
[2021-08-12 07:34] LABS: ALBUMIN 2.5 g/dl (3.4-5.0); BLOOD UREA NITROGEN 38.6 mg/dL (7-18); MAGNESIUM 2.8 mg/dL (1.8-2.4)
[2021-08-12 07:37] LABS: CREATININE 0.9 mg/dL (0.55-1.3)
[2021-08-12 07:38] LABS: BILIRUBIN,TOTAL 0.5 mg/dL (0.2-1); TOT PROT 5.9 g/dl (6.4-8.2)
[2021-08-12] MEDS ORDERED: cefTRIAXone SODIUM 1 GM VIAL ONE (07:54)
[2021-08-12] MEDS ORDERED: DEXTROSE 5%-WATER - 50 ML IVPB ONE (07:55)
[2021-08-12] MEDS: PIPERACILLIN/TAZOB 4.5 GM 4.5 GM in DEXTROSE 5%-WATER 100 ML IVPB SCH ×2 (08:12→08:13)
[2021-08-12] MEDS: CEFTRIAXONE 1 GM in DEXTROSE 5%-WATER - 50 ML IVPB SCH (09:51)
[2021-08-12] MEDS: CARVEDILOL 6.25 MG TABLET (FP) PO SCH ×2 (09:52→21:42)
[2021-08-12] MEDS: HEPARIN INFUSION - 25,000 UNITS/500 ML INFUS.BAG IVPB SCH (17:19)
[2021-08-12] MEDS: AMINO ACIDS/PROTEIN HYDROLYS 30 ML LIQUID.PKT PO SCH (17:20)
[2021-08-12] MEDS ORDERED: AMINO ACIDS/PROTEIN HYDROLYS 30 ML LIQUID.PKT PO SCH (17:30)
[2021-08-12] MEDS: ATORVASTATIN CA 80 MG TABLET (FP) PO SCH (21:42)
[2021-08-13 06:59] LABS: HEMATOCRIT 27.1 % (32.4-45.2); HEMOGLOBIN 8.4 GM/dL (10.7-15.3); MCH 26.4 pg (25.7-33.7); MCHC 31.2 g/dl (32.0-36.0); MEAN CELL VOLUME 84.7 fl (80-96); MEAN PLT VOLUME 9.5 fl (7.5-11.1); PLATELET COUNT 195 10^3/uL (134-434); RDW 20.8 % (11.6-15.6); WHITE BLOOD COUNT 14.8 K/mm3 (4.0-10.0)
[2021-08-13 07:18] LABS: BLOOD UREA NITROGEN 26.2 mg/dL (7-18); CALCIUM 7.9 mg/dL (8.5-10.1); MAGNESIUM 2.4 mg/dL (1.8-2.4)
[2021-08-13 07:22] LABS: CREATININE 0.6 mg/dL (0.55-1.3)
[2021-08-13] MEDS ORDERED: cefTRIAXone SODIUM 1 GM VIAL ONE (08:29)
[2021-08-13] MEDS ORDERED: DEXTROSE 5%-WATER - 50 ML IVPB ONE (08:29)
[2021-08-13] MEDS: CEFTRIAXONE 1 GM in DEXTROSE 5%-WATER - 50 ML IVPB SCH (09:52)
[2021-08-13] MEDS: LOSARTAN POTASSIUM 25 MG TABLET PO SCH (09:53)
[2021-08-13] MEDS: MULTIVITAMINS THER W-MINERALS COMBO TABLET (FP) PO SCH (09:53)
[2021-08-13] MEDS: AMINO ACIDS/PROTEIN HYDROLYS 30 ML LIQUID.PKT PO SCH ×2 (09:53→17:23)
[2021-08-13] MEDS: CARVEDILOL 6.25 MG TABLET (FP) PO SCH ×2 (09:53→21:31)
[2021-08-13] MEDS ORDERED: MULTIVITAMINS THER W-MINERALS COMBO TABLET (FP) PO SCH (10:00)
[2021-08-13] MEDS: HEPARIN INFUSION - 25,000 UNITS/500 ML INFUS.BAG IVPB SCH ×2 (10:21→17:23)
[2021-08-13] MEDS: oxyCODONE HCL 5 MG TABLET PO PRN ×2 (14:04→21:31)
[2021-08-13] MEDS: LACTATED RINGERS SOLUTION 1,000 ML IV SCH (17:26)
[2021-08-13] MEDS: ATORVASTATIN CA 80 MG TABLET (FP) PO SCH (21:31)
[2021-08-14] MEDS ORDERED: morphine SULFATE 4 MG/ML VIAL IVPUSH PRN (01:31)
[2021-08-14] MEDS ORDERED: DEXTROSE 5%-WATER - 50 ML IVPB ONE (08:48)
[2021-08-14] MEDS ORDERED: cefTRIAXone SODIUM 1 GM VIAL ONE (08:48)
[2021-08-14] MEDS: LACTATED RINGERS SOLUTION 1,000 ML IV SCH ×2 (09:00→21:41)
[2021-08-14] MEDS: CEFTRIAXONE 1 GM in DEXTROSE 5%-WATER - 50 ML IVPB SCH (09:01)
[2021-08-14] MEDS: MULTIVITAMINS THER W-MINERALS COMBO TABLET (FP) PO SCH (09:02)
[2021-08-14] MEDS: AMINO ACIDS/PROTEIN HYDROLYS 30 ML LIQUID.PKT PO SCH ×2 (09:02→16:33)
[2021-08-14] MEDS: CARVEDILOL 6.25 MG TABLET (FP) PO SCH ×2 (09:02→21:44)
[2021-08-14] MEDS: LOSARTAN POTASSIUM 25 MG TABLET PO SCH (09:02)
[2021-08-14] MEDS: morphine SULFATE 4 MG/ML VIAL IVPUSH PRN ×2 (10:49→18:23)
[2021-08-14 12:49] LABS: HEMATOCRIT 25.3 % (32.4-45.2); HEMOGLOBIN 7.9 GM/dL (10.7-15.3); MCH 26.3 pg (25.7-33.7); MCHC 31.3 g/dl (32.0-36.0); MEAN PLT VOLUME 9.2 fl (7.5-11.1); PLATELET COUNT 178 10^3/uL (134-434); RBC 3.01 M/mm3 (3.60-5.2); RDW 20.7 % (11.6-15.6)
[2021-08-14 13:15] LABS: CALCIUM 7.8 mg/dL (8.5-10.1)
[2021-08-14 13:16] LABS: MAGNESIUM 2.2 mg/dL (1.8-2.4)
[2021-08-14 13:18] LABS: CREATININE 0.5 mg/dL (0.55-1.3); PHOSPHOROUS 2.7 mg/dL (2.5-4.9)
[2021-08-14 13:21] LABS: TOT PROT 5.6 g/dl (6.4-8.2)
[2021-08-14 13:23] LABS: BILIRUBIN,TOTAL 0.5 mg/dL (0.2-1)
[2021-08-14] MEDS: HEPARIN INFUSION - 25,000 UNITS/500 ML INFUS.BAG IVPB SCH (13:38)
[2021-08-14] MEDS: ATORVASTATIN CA 80 MG TABLET (FP) PO SCH (21:44)
[2021-08-15] MEDS: morphine SULFATE 4 MG/ML VIAL IVPUSH PRN ×2 (01:37→18:34)
[2021-08-15 07:27] LABS: BASO % 0.1 % (0-2.0); EOS % 1.2 % (0-4.5); HEMATOCRIT 25.9 % (32.4-45.2); HEMOGLOBIN 8.1 GM/dL (10.7-15.3); LYMPH % 18.1 % (8-40); MCH 26.5 pg (25.7-33.7); MCHC 31.3 g/dl (32.0-36.0); MEAN CELL VOLUME 84.7 fl (80-96); MEAN PLT VOLUME 9.2 fl (7.5-11.1); NEUT % 70.6 % (42.8-82.8); PLATELET COUNT 175 10^3/uL (134-434); RBC 3.06 M/mm3 (3.60-5.2); RDW 20.4 % (11.6-15.6); WHITE BLOOD COUNT 13.7 K/mm3 (4.0-10.0)
[2021-08-15 07:57] LABS: BLOOD UREA NITROGEN 14.3 mg/dL (7-18)
[2021-08-15 08:00] LABS: CREATININE 0.5 mg/dL (0.55-1.3); MAGNESIUM 2.1 mg/dL (1.8-2.4); PHOSPHOROUS 3.1 mg/dL (2.5-4.9)
[2021-08-15] MEDS ORDERED: cefTRIAXone SODIUM 1 GM VIAL ONE (09:30)
[2021-08-15] MEDS ORDERED: DEXTROSE 5%-WATER - 50 ML IVPB ONE (09:30)
[2021-08-15] MEDS: HEPARIN INFUSION - 25,000 UNITS/500 ML INFUS.BAG IVPB SCH ×2 (10:17→17:32)
[2021-08-15] MEDS: LOSARTAN POTASSIUM 25 MG TABLET PO SCH (10:19)
[2021-08-15] MEDS: AMINO ACIDS/PROTEIN HYDROLYS 30 ML LIQUID.PKT PO SCH ×2 (10:19→17:33)
[2021-08-15] MEDS: CARVEDILOL 6.25 MG TABLET (FP) PO SCH (10:19)
[2021-08-15] MEDS: CEFTRIAXONE 1 GM in DEXTROSE 5%-WATER - 50 ML IVPB SCH (10:19)
[2021-08-15] MEDS: MULTIVITAMINS THER W-MINERALS COMBO TABLET (FP) PO SCH (10:19)
[2021-08-15] MEDS: LACTATED RINGERS SOLUTION 1,000 ML IV SCH ×2 (12:01→19:28)
[2021-08-16] MEDS: morphine SULFATE 4 MG/ML VIAL IVPUSH PRN ×4 (00:09→17:44)
[2021-08-16] MEDS: ATORVASTATIN CA 80 MG TABLET (FP) PO SCH ×2 (00:11→22:27)
[2021-08-16] MEDS: CARVEDILOL 6.25 MG TABLET (FP) PO SCH ×3 (00:11→22:27)
[2021-08-16] MEDS: LACTATED RINGERS SOLUTION 1,000 ML IV SCH ×2 (04:00→17:45)
[2021-08-16] MEDS ORDERED: cefTRIAXone SODIUM 1 GM VIAL ONE (10:43)
[2021-08-16] MEDS ORDERED: DEXTROSE 5%-WATER - 50 ML IVPB ONE (10:43)
[2021-08-16] MEDS: MULTIVITAMINS THER W-MINERALS COMBO TABLET (FP) PO SCH (10:45)
[2021-08-16] MEDS: CEFTRIAXONE 1 GM in DEXTROSE 5%-WATER - 50 ML IVPB SCH (10:45)
[2021-08-16] MEDS: LOSARTAN POTASSIUM 25 MG TABLET PO SCH (10:45)
[2021-08-16] MEDS: AMINO ACIDS/PROTEIN HYDROLYS 30 ML LIQUID.PKT PO SCH ×2 (10:46→17:45)
[2021-08-16 16:28] LABS: BASO % 0.4 % (0-2.0); EOS % 0.9 % (0-4.5); HEMATOCRIT 26.8 % (32.4-45.2); HEMOGLOBIN 8.4 GM/dL (10.7-15.3); LYMPH % 15.5 % (8-40); MCH 26.6 pg (25.7-33.7); MCHC 31.4 g/dl (32.0-36.0); MEAN CELL VOLUME 84.8 fl (80-96); MEAN PLT VOLUME 9.3 fl (7.5-11.1); MONO % 10.4 % (3.8-10.2); NEUT % 72.8 % (42.8-82.8); PLATELET COUNT 189 10^3/uL (134-434); RBC 3.16 M/mm3 (3.60-5.2); RDW 20.9 % (11.6-15.6); WHITE BLOOD COUNT 14.8 K/mm3 (4.0-10.0)
[2021-08-16 16:50] LABS: CALCIUM 8.3 mg/dL (8.5-10.1)
[2021-08-16 16:51] LABS: BLOOD UREA NITROGEN 11.2 mg/dL (7-18)
[2021-08-16 16:54] LABS: CREATININE 0.5 mg/dL (0.55-1.3)
[2021-08-16 18:13] LABS: ANISOCYTOSIS 2+; MACROCYTOSIS 0; OVALOCYTE 1+; TEAR DROP CELLS 1+
[2021-08-16] MEDS ORDERED: HEPARIN NA (PORCINE) 5,000 UNITS/ML 1ML VIAL IVPUSH PRN ×2 (23:06)
[2021-08-17] MEDS: HEPARIN - 25,000 UNIT in SODIUM CHLORIDE 495 ML IV SCH (02:02)
[2021-08-17] MEDS: morphine SULFATE 4 MG/ML VIAL IVPUSH PRN ×3 (02:09→22:41)
[2021-08-17] MEDS ORDERED: DEXTROSE 5%-WATER - 50 ML IVPB ONE (09:30)
[2021-08-17] MEDS ORDERED: cefTRIAXone SODIUM 1 GM VIAL ONE (09:30)
[2021-08-17] MEDS: LOSARTAN POTASSIUM 25 MG TABLET PO SCH (10:08)
[2021-08-17] MEDS: CARVEDILOL 6.25 MG TABLET (FP) PO SCH ×2 (10:08→21:29)
[2021-08-17] MEDS: MULTIVITAMINS THER W-MINERALS COMBO TABLET (FP) PO SCH (10:08)
[2021-08-17] MEDS: AMINO ACIDS/PROTEIN HYDROLYS 30 ML LIQUID.PKT PO SCH ×2 (10:09→16:38)
[2021-08-17] MEDS: CEFTRIAXONE 1 GM in DEXTROSE 5%-WATER - 50 ML IVPB SCH (10:09)
[2021-08-17] MEDS: ACETAMINOPHEN 1000 MG/100 ML BAG IVPB PRN ×2 (10:10→16:38)
[2021-08-17] MEDS: ATORVASTATIN CA 80 MG TABLET (FP) PO SCH (21:29)
[2021-08-18] MEDS: LACTATED RINGERS SOLUTION 1,000 ML IV SCH ×2 (05:16→05:17)
[2021-08-18] MEDS: HEPARIN - 25,000 UNIT in SODIUM CHLORIDE 495 ML IV SCH (06:24)
[2021-08-18] MEDS: morphine SULFATE 4 MG/ML VIAL IVPUSH PRN ×2 (06:28→23:11)
[2021-08-18] MEDS: AMINO ACIDS/PROTEIN HYDROLYS 30 ML LIQUID.PKT PO SCH ×2 (09:04→18:32)
[2021-08-18] MEDS: MULTIVITAMINS THER W-MINERALS COMBO TABLET (FP) PO SCH (09:04)
[2021-08-18] MEDS ORDERED: DEXTROSE 5%-WATER - 50 ML IVPB ONE (09:10)
[2021-08-18] MEDS ORDERED: cefTRIAXone SODIUM 1 GM VIAL ONE (09:10)
[2021-08-18] MEDS: LOSARTAN POTASSIUM 25 MG TABLET PO SCH (09:19)
[2021-08-18] MEDS: CARVEDILOL 6.25 MG TABLET (FP) PO SCH ×2 (09:19→22:41)
[2021-08-18] MEDS: CEFTRIAXONE 1 GM in DEXTROSE 5%-WATER - 50 ML IVPB SCH (09:20)
[2021-08-18 12:45] LABS: HEMATOCRIT 26.6 % (32.4-45.2); HEMOGLOBIN 8.1 GM/dL (10.7-15.3); MCH 26.4 pg (25.7-33.7); MCHC 30.6 g/dl (32.0-36.0); MEAN CELL VOLUME 86.3 fl (80-96); MEAN PLT VOLUME 9.2 fl (7.5-11.1); PLATELET COUNT 219 10^3/uL (134-434); RBC 3.08 M/mm3 (3.60-5.2); RDW 21.5 % (11.6-15.6); WHITE BLOOD COUNT 14.6 K/mm3 (4.0-10.0)
[2021-08-18 13:04] LABS: BLOOD UREA NITROGEN 15.7 mg/dL (7-18); MAGNESIUM 2.1 mg/dL (1.8-2.4)
[2021-08-18 13:06] LABS: CALCIUM 8.4 mg/dL (8.5-10.1)
[2021-08-18 13:07] LABS: CREATININE 0.5 mg/dL (0.55-1.3)
[2021-08-18 13:08] LABS: PHOSPHOROUS 3.8 mg/dL (2.5-4.9)
[2021-08-18] MEDS ORDERED: MIDAZOLAM HCL 2 MG/2 ML SINGLE DOSE VIAL ONE (17:53)
[2021-08-18] MEDS ORDERED: fentaNYL CITRATE 250 MCG/5 ML VIAL ONE (17:53)
[2021-08-18] MEDS ORDERED: ROCURONIUM BROMIDE 50 MG/5 ML SYRINGE ONE (17:53)
[2021-08-18] MEDS ORDERED: ceFAZolin SODIUM 1 GM VIAL IVPB ONE (18:18)
[2021-08-18] MEDS ORDERED: KETAMINE HCL 200 MG/20 ML VIAL ONE (18:21)
[2021-08-18] MEDS ORDERED: NEOSTIGMINE METHYLSULFATE 0.5 MG/ML - 10 ML MDV ONE (18:54)
[2021-08-18] MEDS ORDERED: PROMETHAZINE HCL 25 MG/1 ML VIAL IVPUSH PRN (19:52)
[2021-08-18] MEDS ORDERED: ONDANSETRON 4 MG/2 ML VIAL IVPUSH PRN (19:52)
[2021-08-18] MEDS ORDERED: LACTATED RINGERS SOLUTION 1,000 ML IV SCH (19:54)
[2021-08-18] MEDS: ATORVASTATIN CA 80 MG TABLET (FP) PO SCH (22:41)
[2021-08-19] MEDS: morphine SULFATE 4 MG/ML VIAL IVPUSH PRN ×3 (03:43→20:56)
[2021-08-19] MEDS ORDERED: ACETAMINOPHEN 1000 MG/100 ML BAG IVPB ONE (06:21)
[2021-08-19 07:23] LABS: BASO % 0.6 % (0-2.0); EOS % 0.1 % (0-4.5); HEMATOCRIT 25.3 % (32.4-45.2); HEMOGLOBIN 7.7 GM/dL (10.7-15.3); LYMPH % 13.7 % (8-40); MCH 25.7 pg (25.7-33.7); MCHC 30.6 g/dl (32.0-36.0); MEAN CELL VOLUME 84.2 fl (80-96); MEAN PLT VOLUME 8.7 fl (7.5-11.1); MONO % 7.3 % (3.8-10.2); NEUT % 78.3 % (42.8-82.8); PLATELET COUNT 214 10^3/uL (134-434); RDW 21.2 % (11.6-15.6); WHITE BLOOD COUNT 18.7 K/mm3 (4.0-10.0)
[2021-08-19 07:52] LABS: BLOOD UREA NITROGEN 17.4 mg/dL (7-18); CALCIUM 8.3 mg/dL (8.5-10.1)
[2021-08-19 07:54] LABS: MAGNESIUM 1.8 mg/dL (1.8-2.4)
[2021-08-19 07:55] LABS: CREATININE 0.7 mg/dL (0.55-1.3)
[2021-08-19 07:56] LABS: BILIRUBIN,TOTAL 0.8 mg/dL (0.2-1); TOT PROT 5.9 g/dl (6.4-8.2)
[2021-08-19] MEDS ORDERED: CLOPIDOGREL BISULFATE 75 MG TABLET (FP) PO SCH (10:00)
[2021-08-19] MEDS ORDERED: cefTRIAXone SODIUM 1 GM VIAL ONE (11:42)
[2021-08-19] MEDS ORDERED: DEXTROSE 5%-WATER - 50 ML IVPB ONE (11:43)
[2021-08-19] MEDS: AMINO ACIDS/PROTEIN HYDROLYS 30 ML LIQUID.PKT PO SCH ×2 (11:44→17:29)
[2021-08-19] MEDS: CARVEDILOL 6.25 MG TABLET (FP) PO SCH ×2 (11:44→21:09)
[2021-08-19] MEDS: LACTATED RINGERS SOLUTION 1,000 ML IV SCH (11:45)
[2021-08-19] MEDS: LOSARTAN POTASSIUM 25 MG TABLET PO SCH (11:45)
[2021-08-19] MEDS: MULTIVITAMINS THER W-MINERALS COMBO TABLET (FP) PO SCH (11:45)
[2021-08-19] MEDS: CEFTRIAXONE 1 GM in DEXTROSE 5%-WATER - 50 ML IVPB SCH (11:45)
[2021-08-19] MEDS ORDERED: ACETAMINOPHEN 1000 MG/100 ML BAG IVPB PRN (18:37)
[2021-08-19] MEDS: ATORVASTATIN CA 80 MG TABLET (FP) PO SCH (21:09)
[2021-08-20] MEDS: morphine SULFATE 4 MG/ML VIAL IVPUSH PRN (01:49)
[2021-08-20 09:22] LABS: HEMATOCRIT 26.1 % (32.4-45.2); MCH 26.2 pg (25.7-33.7); MCHC 30.6 g/dl (32.0-36.0); MEAN CELL VOLUME 85.5 fl (80-96); MEAN PLT VOLUME 9.1 fl (7.5-11.1); PLATELET COUNT 214 10^3/uL (134-434); RBC 3.06 M/mm3 (3.60-5.2); RDW 21.4 % (11.6-15.6); WHITE BLOOD COUNT 19.6 K/mm3 (4.0-10.0)
[2021-08-20 09:52] LABS: ALBUMIN 1.6 g/dl (3.4-5.0); BLOOD UREA NITROGEN 15.3 mg/dL (7-18)
[2021-08-20 09:55] LABS: CREATININE 0.5 mg/dL (0.55-1.3)
[2021-08-20 09:56] LABS: BILIRUBIN,TOTAL 0.5 mg/dL (0.2-1); TOT PROT 5.4 g/dl (6.4-8.2)
[2021-08-20] MEDS: POLYETHYLENE GLYCOL (HEALTHYLAX) 3350 17 GM PACKET PO SCH (10:41)
[2021-08-20] MEDS: MULTIVITAMINS THER W-MINERALS COMBO TABLET (FP) PO SCH (10:41)
[2021-08-20] MEDS: LOSARTAN POTASSIUM 25 MG TABLET PO SCH (10:41)
[2021-08-20] MEDS: APIXABAN 5 MG TABLET PO SCH ×2 (10:41→21:38)
[2021-08-20] MEDS: CARVEDILOL 6.25 MG TABLET (FP) PO SCH ×2 (10:41→21:36)
[2021-08-20] MEDS: oxyCODONE HCL 5 MG TABLET PO PRN ×2 (10:47→21:36)
[2021-08-20] MEDS: AMINO ACIDS/PROTEIN HYDROLYS 30 ML LIQUID.PKT PO SCH ×3 (10:51→17:28)
[2021-08-20] MEDS: CEFTRIAXONE 1 GM in DEXTROSE 5%-WATER - 50 ML IVPB SCH (10:51)
[2021-08-20] MEDS: ATORVASTATIN CA 80 MG TABLET (FP) PO SCH (21:38)
[2021-08-21] MEDS: APIXABAN 5 MG TABLET PO SCH ×2 (09:24→21:23)
[2021-08-21] MEDS: CARVEDILOL 6.25 MG TABLET (FP) PO SCH ×2 (09:24→21:23)
[2021-08-21] MEDS: LOSARTAN POTASSIUM 25 MG TABLET PO SCH (09:24)
[2021-08-21] MEDS: POLYETHYLENE GLYCOL (HEALTHYLAX) 3350 17 GM PACKET PO SCH (09:24)
[2021-08-21] MEDS: MULTIVITAMINS THER W-MINERALS COMBO TABLET (FP) PO SCH (09:24)
[2021-08-21] MEDS: AMINO ACIDS/PROTEIN HYDROLYS 30 ML LIQUID.PKT PO SCH ×2 (09:24→18:07)
[2021-08-21] MEDS: SPIRONOLACTONE 25 MG TABLET PO SCH (09:24)
[2021-08-21] MEDS: oxyCODONE HCL 5 MG TABLET PO PRN ×2 (13:26→21:24)
[2021-08-21] MEDS: ATORVASTATIN CA 80 MG TABLET (FP) PO SCH (21:23)
[2021-08-22 06:16] VITALS: TEMP 98.2
[2021-08-22 08:22] VITALS: BP 121/58; PULSE 79
[2021-08-22] MEDS: AMINO ACIDS/PROTEIN HYDROLYS 30 ML LIQUID.PKT PO SCH (09:33)
[2021-08-22] MEDS: CARVEDILOL 6.25 MG TABLET (FP) PO SCH (09:33)
[2021-08-22] MEDS: SPIRONOLACTONE 25 MG TABLET PO SCH (09:33)
[2021-08-22] MEDS: LOSARTAN POTASSIUM 25 MG TABLET PO SCH (09:33)
[2021-08-22] MEDS: APIXABAN 5 MG TABLET PO SCH (09:33)
[2021-08-22] MEDS: POLYETHYLENE GLYCOL (HEALTHYLAX) 3350 17 GM PACKET PO SCH (09:33)
[2021-08-22] MEDS: MULTIVITAMINS THER W-MINERALS COMBO TABLET (FP) PO SCH (09:33)
[2021-08-22 12:37] LABS: HEMATOCRIT 23.8 % (32.4-45.2); HEMOGLOBIN 7.4 GM/dL (10.7-15.3); MCH 26.1 pg (25.7-33.7); MEAN CELL VOLUME 84.1 fl (80-96); MEAN PLT VOLUME 9.2 fl (7.5-11.1); PLATELET COUNT 204 10^3/uL (134-434); RBC 2.83 M/mm3 (3.60-5.2); RDW 21.2 % (11.6-15.6); WHITE BLOOD COUNT 13.5 K/mm3 (4.0-10.0)
[2021-08-22] MEDS: oxyCODONE HCL 5 MG TABLET PO PRN (14:25)
== END 2021-08-22 16:07 | DRG 181 ==
LOC: JER 16:45 → JERBED 19:05 → J6S 08-06 01:37 → J4W 08-06 23:24
PROVIDERS: ATTEND Internal Medicine
PROC: 047K3DZ Dilation of Right Femoral Artery with Intraluminal Device, Percutaneous Approach (ICD-10-PCS; 2021-08-06)
PROC: 047R3ZZ Dilation of Right Posterior Tibial Artery, Percutaneous Approach (ICD-10-PCS; 2021-08-06)
PROC: 047L3ZZ Dilation of Left Femoral Artery, Percutaneous Approach (ICD-10-PCS; 2021-08-09)
PROC: 047N3ZZ Dilation of Left Popliteal Artery, Percutaneous Approach (ICD-10-PCS; 2021-08-09)
PROC: 3E05317 Introduction of Other Thrombolytic into Peripheral Artery, Percutaneous Approach (ICD-10-PCS; 2021-08-09)
PROC: 047D3ZZ Dilation of Left Common Iliac Artery, Percutaneous Approach (ICD-10-PCS; 2021-08-09)
PROC: 0Y6G0ZZ Detachment at Left Knee Region, Open Approach (ICD-10-PCS; principal; 2021-08-18 18:00)
DX: E11.51 Type 2 diabetes mellitus with diabetic peripheral angiopathy without gangrene (principal); I50.23 Acute on chronic systolic (congestive) heart failure; I70.92 Chronic total occlusion of artery of the extremities; N17.9 Acute kidney failure, unspecified; I48.19 Other persistent atrial fibrillation; J96.10 Chronic respiratory failure, unspecified whether with hypoxia or hypercapnia; I24.8 Other forms of acute ischemic heart disease; E87.2 Acidosis; I70.222 Atherosclerosis of native arteries of extremities with rest pain, left leg; I82.441 Acute embolism and thrombosis of right tibial vein; K21.9 Gastro-esophageal reflux disease without esophagitis; I25.119 Atherosclerotic heart disease of native coronary artery with unspecified angina pectoris; F03.90 Unspecified dementia, unspecified severity, without behavioral disturbance, psychotic disturbance, mood disturbance, and anxiety; J44.9 Chronic obstructive pulmonary disease, unspecified; I25.10 Atherosclerotic heart disease of native coronary artery without angina pectoris; I11.0 Hypertensive heart disease with heart failure; E78.5 Hyperlipidemia, unspecified; I44.7 Left bundle-branch block, unspecified; Z95.1 Presence of aortocoronary bypass graft; R74.01 Elevation of levels of liver transaminase levels
CPT/HCPCS: 36415; 36600; 70450-TC; 71045-TC-FY; 75635-TC; 76000-TC-FY; 80048; 80053; 82550; 82803; 83735; 83880; 84100; 84484; 85025; 85027; 85379; 85610; 85730; 86850; 86900; 86901; 86922; 87040; 93005; 93010; 93306-TC; 93926-TC; 94640; 94760; 97162-GP; 99291; C9803; G0463-25; J0131; J1644; Q9967; U0003; U0005